=== PATIENT | female | born 1965 | race Caucasian/White ===

== ENCOUNTER 2023-11-13 10:48 | Outpatient (AMB) | payer OTHER, SELFPAY ==
[2023-11-13 10:51] VITALS: BP 134/72; PULSE 75; O2SAT 99; BMI 25.0
--- NOTE | 2023-11-13 10:51 | MHC.OFFVIS ---
Vital Signs 11/13/23 10:51 Height 5 ft Weight 128 lb BMI 25.0 BP 134/72 Blood Pressure Location Lt brachial Position Sitting Pulse 75 Pulse Source Pulse Oximeter Pulse Oximetry (%) 99 Oxygen Delivery Method Room Air Intake Visit Reasons: + NICKO Intake Note: Patient presents today as a new patient with diagnosis of +NIKCO. She states there is inflammation in the back of her right eye. Allergies No Known Allergies Allergy (Verified 11/13/23 10:56) Medication List - Last Reconciled 11/13/23 by Fatuma Alejandra MD amlodipine 5 mg PO DAILY dorzolamide 2% 1 drp ophthalmic (eye) TID omeprazole 20 mg PO DAILY prednisone 10 mg PO DAILY timolol maleate 0.5% drps ophthalmic (eye) HPI Comments Details: This is a 57-year-old female who presents for evaluation of a positive NICKO in the setting of right eye pain uveitis. She states that she was going for a routine eye exam, she stated that her vision was somewhat declining. She denied any eye pain. She saw multiple I specialists. She was found to have uveitis. Most recently she was seen by uveitis specialist at [facility] [place]. She was given different steroid treatments including intravitreal, oral prednisone and topical steroids. She was also found to have increased eye pressure. She states that her eye has been doing better. I pressure is improving. Patient denies having any other symptoms. She denies any swollen joints, denies any back pain, stiffness, skin rashes, fevers, weight loss, hair loss, photosensitivity, she denies any oral or genital ulcers. She denies any history of DVT/PE. 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 Female Reproductive History Menstrual Total pregnancies: 3 Number of Living Children: 2 Ab spontaneous: 1 Review of Systems Const Denies fever(s) and Denies weight loss Eyes Reports change in vision Card Denies dyspnea Resp Denies dyspnea Musc Denies arthralgias, Denies joint swelling and Denies stiffness Skin/Breast Denies alopecia and Denies unusual bruising Physical Exam Vital Signs: Last Vital Signs Pulse 75 11/13/23 10:51 BP 134/72 11/13/23 10:51 Pulse Ox 99 11/13/23 10:51 Oxygen Delivery Method Room Air 11/13/23 10:51 BMI result Body Mass Index 25.0 Const General: cooperative, healthy appearing and comfortable Nutritional Appearance: average body habitus Orientation/consciousness: patient oriented x3 Limitations: no limitations HEENT Head: Yes normocephalic and Yes atraumatic Mouth: oropharynx normal Resp Effort & Inspection: normal respiratory effort and able to speak in complete sentences Auscultation: clear to auscultation bilaterally Cardio Rate: regular rate Rhythm: regular rhythm GI Palpation (GI): Soft to palpation Skin General skin exam: no rashes or lesions noted Neuro General: patient oriented x3 Extrem Other: No active synovitis Negative straight leg raise test bilaterally Negative Fabere test bilaterally Normal nailfold capillaroscopy Results Reviewed Results Reviewed: Labs 05/2023? NICKO 1-12 0 speckled? RF/HLA B27 negative CBC unremarkable? Sed rate 25? CRP normal Edvin level normal HIV 4th generation screen negative? QuantiFERON RPR and FTA negative? Toxoplasma IgG/IgM negative Assessment & Plan Assessment & Plan (1) NICKO positive: Code(s): R76.8 - Other specified abnormal immunological findings in serum Category: Medical Plan: This is a 57-year-old female who presents for evaluation of high titer positive NICKO in the setting of right eye panuveitis. By history and physical exam there are no specific symptoms that are suggestive of an underlying systemic autoimmune rheumatic disease however given right eye panuveitis and high titer positive NICKO I will order comprehensive serology to screen for underlying autoimmune rheumatic disease Follow-up in 4-6 weeks Plan I spent 47 minutes reviewing patient's chart, evaluating patient, ordering diagnostic workup, counseling patient and documenting in the chart Orders: Orders NICKO Reflex Titer and Pattern Today M32.9 - Systemic lupus erythematosus, unspecified Complement C3 Today M32.9 - Systemic lupus erythematosus, unspecified C Reactive Protein Today M32.9 - Systemic lupus erythematosus, unspecified DNA Double Stranded-Crithidia Today M32.9 - Systemic lupus erythematosus, unspecified Complete Blood Count Auto Diff Today M32.9 - Systemic lupus erythematosus, unspecified Comprehensive Met. Panel Today M32.9 - Systemic lupus erythematosus, unspecified Hepatitis A,B,C Profile Today H44.111 - Panuveitis, right eye, Z11.59 - Encounter for screening for other viral diseases Beta-2 Glycoprotein Antibody Today D68.61 - Antiphospholipid syndrome Cardiolipin Antibodies Today D68.61 - Antiphospholipid syndrome Lupus Anticoagulant Panel Today D68.61 - Antiphospholipid syndrome HLA B51 Behcet's Disease Today M35.2 - Behcet's disease Anti Extractable Nuclear Ag Today M32.9 - Systemic lupus erythematosus, unspecified Anti DNA DS Antibody Today M32.9 - Systemic lupus erythematosus, unspecified Complement C4 Today M32.9 - Systemic lupus erythematosus, unspecified Erythrocyte Sedimentation Rate Today M32.9 - Systemic lupus erythematosus, unspecified Protein Creatinine Ratio, Ur Today M32.9 - Systemic lupus erythematosus, unspecified Sjogren's Antibodies Today M32.9 - Systemic lupus erythematosus, unspecified UA w Microscopic Today M32.9 - Systemic lupus erythematosus, unspecified ANCA Vasculitides Today I77.6 - Arteritis, unspecified Cyclic Citrullinated Peptide Today M25.50 - Pain in unspecified joint, R76.8 - Other specified abnormal immunological findings in serum Coding Level of Care Code New Pt Level 4 (15163) Diagnoses NICKO positive R76.8
== END 2023-11-13 11:33 | disposition home or self-care (01) ==
PROVIDERS: PCP Internal Medicine; Referring Provider Internal Medicine; Visit Provider Student in an Organized Health Care Education/Training Program
DX: R76.8 Other specified abnormal immunological findings in serum (principal)
CPT/HCPCS: 99204

== ENCOUNTER 2023-11-13 10:48 | Outpatient (REF) | payer OTHER, SELFPAY ==
[2023-11-13 12:39] LABS: MANUAL DIFF FLAG NO
[2023-11-13 13:09] LABS: Basophils Absolute Auto 0.1 X10*3/uL (0.0-0.2); Basophils Percent Auto 0.7 % (0-2); Eosinophils Absolute Auto 0.1 X10*3/uL (0.0-0.4); Hemoglobin 14.6 g/dl (12.0-16.0); Imm Gran Abs Auto 0.05 X10*3/uL (0.00-0.03); Imm Gran Pct Auto 0.6 % (0.0-0.4); Lymphocytes Absolute Auto 2.9 X10*3/uL (1.2-4.9); Lymphocytes Percent Auto 32.5 % (20-40); Mean Corpuscular Hemoglobin 29.4 pg (27.0-33.0); Mean Corpuscular Volume 86.7 fL (80.0-98.0); Mean Platelet Volume 10.1 fL (9.4-12.3); Monocytes Absolute Auto 0.8 X10*3/uL (0.1-1.2); Monocytes Percent Auto 8.5 % (2-11); Neutrophils Absolute Auto 5.1 x10*3/uL (2.0-8.3); Neutrophils Percent Auto 56.7 % (45-73); Platelet Count 396 X10*3/uL (160-400); Red Blood Count 4.96 X10*6/uL (4.20-5.50); Red Cell Distribution Width 12.9 % (11.0-16.0); White Blood Count 9.1 X10*3/uL (4.8-10.8)
[2023-11-13 13:26] LABS: Appearance Urine Clear; Color Urine Yellow; Glucose Urine UA Negative (Negative); Leukocyte Esterase Urine Trace (Negative); Nitrite Urine Negative (Negative); UMIC TRIGGER UA YES; Urine Blood Negative (Negative); Urine Ketones Negative (Negative); Urine Protein Negative (Neg-Trace)
[2023-11-13 13:29] LABS: Bacteria Urine None Seen (None Seen); Hyaline Casts Urine 0-2 /LPF (0-2); RBC Urine 0-2 /HPF (0-2); Squamous Epithelial Cell Urine 0-2 /HPF (0-2); WBC Urine 0-5 /HPF (0-5)
[2023-11-13 14:02] LABS: Alanine Aminotransferase 22 U/L (0-31); Albumin Level 4.2 g/dL (3.5-5.0); Alkaline Phosphatase 75 U/L (39-117); Anion Gap 13 (12-20); Aspartate Amino Transferase 17 U/L (5-31); Bilirubin Total 0.4 mg/dL (0.0-1.0); Blood Urea Nitrogen 11 mg/dL (9-16); Calcium 10.1 mg/dL (8.4-10.2); Carbon Dioxide 27 mmol/L (22-29); Chloride 106 mmol/L (96-108); Estimated Glomerular Filt Rate > 60; Glucose Random 91 mg/dL (60-115); Potassium 3.3 mmol/L (3.3-5.1); Sodium 143 mmol/L (135-145); Total Protein 7.3 g/dL (6.5-8.0)
[2023-11-13 14:05] LABS: Erythrocyte Sedimentation Rate 7 MM/HR (0-20)
[2023-11-13 14:18] LABS: Creatinine Urine 79.38 mg/dL; Protein/Creatinine Ratio, Ur 0.13 (<0.2); Total Protein Urine Random 10 mg/dL (<12)
[2023-11-14 04:45] LABS: HBS Num1 0.53 mIU/mL (0-7.99); HBc Num1 0.11 S/CO (0.00-0.79); HBsAGNum1 0.44 S/CO (0.00-0.99); Hepatitis B Core Antibody Nonreactive (Nonreactive); Hepatitis B Surface Antigen Negative (Negative); ~HepC Num1 0.07 S/CO (0.00-0.79); ~Hepatitis A Antibody IgM Nonreactive (Nonreactive); ~Hepatitis B Surface Antibody NONREACTIVE (Nonreactive); ~Hepatitis C Antibody Nonreactive (Nonreactive)
[2023-11-14 14:28] LABS: Complement C3 148 mg/dL (83-193)
[2023-11-14 19:59] LABS: Anti DNA DS Antibody <1 IU/mL; Antibody to SS-A Antigen >8.0 POS AI (<1.0 NEG); Antibody to SS-B Antigen <1.0 NEG AI (<1.0 NEG); Myeloperoxidase Antibody <1.0 AI; Proteinase 3 PR3 Antibodies <1.0 AI; SM/Ribonucleoprotein Ab <1.0 NEG AI (<1.0 NEG); Smith Protein <1.0 NEG AI (<1.0 NEG)
[2023-11-16 12:34] LABS: Anti Nuclear Antibody Pattern Nuclear, Speckled; Anti Nuclear Antibody Screen POSITIVE (NEGATIVE)
[2023-11-16 16:48] LABS: Cardiolipin IgG Ab <2.0 GPL-U/mL; Cardiolipin IgM Ab <2.0 MPL-U/mL; Cyclic Citrullinated Peptide <16 UNITS
[2023-11-17 06:34] LABS: DNAds, Crithidia Antibody Positive (Negative)
[2023-11-17 07:04] LABS: DNAds, Crithidia Antibody 1:10 titer (<1:10)
[2023-11-17 22:33] LABS: PTT (LAC) Screen 26 sec (<=40)
[2023-11-23 20:09] LABS: HLA B51 Comments See Comments; HLA B51 Method PCR SSOP
[2023-11-23 22:28] LABS: Beta-2 Glycoprotein IgA <2.0 U/mL (<20.0); Beta-2 Glycoprotein IgG <2.0 U/mL (<20.0); Beta-2 Glycoprotein IgM <2.0 U/mL (<20.0)
== END 2023-11-13 10:49 | disposition home or self-care (01) ==
LOC: HO.LAB 10:48
PROVIDERS: PCP Internal Medicine; Referring Provider Internal Medicine; Visit Provider Student in an Organized Health Care Education/Training Program
DX: M32.9 Systemic lupus erythematosus, unspecified (principal); Z11.59 Encounter for screening for other viral diseases; H44.111 Panuveitis, right eye; D68.61 Antiphospholipid syndrome; I77.6 Arteritis, unspecified; M25.50 Pain in unspecified joint; R76.8 Other specified abnormal immunological findings in serum; M35.2 Behcet's disease
CPT/HCPCS: 36415; 80053; 81001; 81374; 82570; 84156; 85025; 85597; 85598; 85613; 85652; 85730; 86021; 86038; 86039; 86140; 86146; 86147; 86160; 86200; 86225; 86235; 86255; 86704; 86706; 86709; 86803; 87340; 99202

== ENCOUNTER 2024-01-10 08:04 | Outpatient (AMB) | payer OTHER, SELFPAY ==
--- NOTE | 2024-01-10 08:07 | MHC.OFFVIS ---
Vital Signs 01/10/24 08:12 Height 5 ft Weight 132 lb 15.02 oz BMI 26.0 BP 112/74 Blood Pressure Location Rt brachial Position Sitting Pulse 79 Pulse Source Pulse Oximeter Pulse Oximetry (%) 98 Oxygen Delivery Method Room Air Intake Visit Reasons: NICKO/CM Intake Note: Patient presents for NICKO. Allergies No Known Allergies Allergy (Verified 01/10/24 08:11) Medication List - Last Reconciled 01/10/24 by Fatuma Alejandra MD amlodipine 5 mg PO DAILY dorzolamide 2% 1 drp ophthalmic (eye) TID omeprazole 20 mg PO DAILY prednisone 10 mg PO DAILY timolol maleate 0.5% drps ophthalmic (eye) HPI Comments Details: Patient returns for follow-up after completion of her diagnostic workup. Remains on prednisone 10 mg daily. Initial history: This is a 57-year-old female who presents for evaluation of a positive NICKO in the setting of right eye panuveitis. She states that she was going for a routine eye exam, she stated that her vision was somewhat declining. She denied any eye pain. She saw multiple I specialists. She was found to have uveitis. Most recently she was seen by uveitis specialist at [facility] [place]. She was given different steroid treatments including intravitreal, oral prednisone and topical steroids. She was also found to have increased eye pressure. She states that her eye has been doing better. eye pressure is improving. Patient denies having any other symptoms. She denies any swollen joints, denies any back pain, stiffness, skin rashes, fevers, weight loss, hair loss, photosensitivity, she denies any oral or genital ulcers. She denies any history of DVT/PE. 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 Female Reproductive History Menstrual Total pregnancies: 3 Number of Living Children: 2 Ab spontaneous: 1 Review of Systems Const Denies fever(s) and Denies weight loss Eyes Reports change in vision Card Denies dyspnea Resp Denies dyspnea Musc Denies arthralgias, Denies joint swelling and Denies stiffness Skin/Breast Denies alopecia and Denies unusual bruising Physical Exam Vital Signs: Last Vital Signs Pulse 79 01/10/24 08:12 BP 112/74 01/10/24 08:12 Pulse Ox 98 01/10/24 08:12 Oxygen Delivery Method Room Air 01/10/24 08:12 BMI result Body Mass Index 26.0 Const General: cooperative, healthy appearing and comfortable Nutritional Appearance: average body habitus Orientation/consciousness: patient oriented x3 Limitations: no limitations HEENT Head: Yes normocephalic and Yes atraumatic Mouth: oropharynx normal Resp Effort & Inspection: normal respiratory effort and able to speak in complete sentences Skin General skin exam: no rashes or lesions noted Neuro General: patient oriented x3 Extrem Other: No active synovitis Negative straight leg raise test bilaterally Negative Fabere test bilaterally Normal nailfold capillaroscopy Assessment & Plan Assessment & Plan (1) NICKO positive: Code(s): R76.8 - Other specified abnormal immunological findings in serum Category: Medical Plan: This is a 57-year-old female who presents for evaluation of high titer positive NICKO in the setting of right eye panuveitis. Subsequent labs showed positive anti SSA antibody in high titers. Labs otherwise unremarkable with normal C3/C4 inflammatory markers, no proteinuria, no cytopenias. I think given positive anti Ro antibody as well as boss uveitis this may be an initial manifestation of SLE. Systemic therapy may be beneficial in this situation. Discussed risks and benefits of hydroxychloroquine. Patient agreed to proceed. Start hydroxychloroquine 300 mg daily Discussed with patient that hydroxychloroquine generally takes about 3 months to kick in. Consider starting to taper prednisone after 3 months of starting hydroxychloroquine Follow-up in 3 months (2) Long-term use of hydroxychloroquine: Code(s): Z79.899 - Other retirement (current) drug therapy Category: Medical Plan: Discussed risk of retinopathy associated with hydroxychloroquine. Follow-up regularly with locomotive firer Plan I spent 27 minutes reviewing patient's chart, evaluating patient, ordering diagnostic workup, counseling patient and documenting in the chart Orders: Orders Anti DNA DS Antibody 3 Months M32.9 - Systemic lupus erythematosus, unspecified Complement C3 3 Months M32.9 - Systemic lupus erythematosus, unspecified Erythrocyte Sedimentation Rate 3 Months M32.9 - Systemic lupus erythematosus, unspecified Complement C4 3 Months M32.9 - Systemic lupus erythematosus, unspecified C Reactive Protein 3 Months M32.9 - Systemic lupus erythematosus, unspecified Protein Creatinine Ratio, Ur 3 Months M32.9 - Systemic lupus erythematosus, unspecified UA w Microscopic 3 Months M32.9 - Systemic lupus erythematosus, unspecified Complete Blood Count Auto Diff 3 Months M32.9 - Systemic lupus erythematosus, unspecified Comprehensive Met. Panel 3 Months M32.9 - Systemic lupus erythematosus, unspecified Medications: New hydroxychloroquine 300 mg (1.5 x 200 mg) PO DAILY 135 tabs 1RF Coding Level of Care Code Est Pt Level 4 (56036) Complex EM visit Add On G2211 Diagnoses NICKO positive R76.8 Long-term use of hydroxychloroquine Z79.899
[2024-01-10 08:12] VITALS: BP 112/74; PULSE 79; O2SAT 98; BMI 26.0
== END 2024-01-10 08:29 | disposition home or self-care (01) ==
LOC: HO.RHE 08:04
PROVIDERS: PCP Internal Medicine; Visit Provider Student in an Organized Health Care Education/Training Program
DX: R76.8 Other specified abnormal immunological findings in serum (principal); Z79.899 Other long term (current) drug therapy
CPT/HCPCS: 99214; G2211

== ENCOUNTER → 2024-01-10 08:04 | Outpatient (BNVA) | payer OTHER, SELFPAY | PROVIDERS: PCP Internal Medicine; Visit Provider Student in an Organized Health Care Education/Training Program | DX: R76.8 Other specified abnormal immunological findings in serum (principal); M32.9 Systemic lupus erythematosus, unspecified; Z79.899 Other long term (current) drug therapy | CPT/HCPCS: 99212 ==

== ENCOUNTER 2024-02-29 10:36 | Outpatient (REF) | payer OTHER, SELFPAY ==
[2024-02-29 11:02] LABS: MANUAL DIFF FLAG NO
[2024-02-29 11:24] LABS: Basophils Absolute Auto 0.1 X10*3/uL (0.0-0.2); Basophils Percent Auto 1.1 % (0-2); Eosinophils Absolute Auto 0.1 X10*3/uL (0.0-0.4); Eosinophils Percent Auto 1.6 % (0-4); Hematocrit 37.6 % (37.0-47.0); Hemoglobin 12.6 g/dl (12.0-16.0); Imm Gran Abs Auto 0.02 X10*3/uL (0.00-0.03); Imm Gran Pct Auto 0.3 % (0.0-0.4); Lymphocytes Absolute Auto 2.6 X10*3/uL (1.2-4.9); Lymphocytes Percent Auto 35.1 % (20-40); Mean Corpuscular HGB Conc 33.5 g/dl (31.0-35.0); Mean Corpuscular Hemoglobin 28.8 pg (27.0-33.0); Mean Corpuscular Volume 85.8 fL (80.0-98.0); Monocytes Absolute Auto 0.8 X10*3/uL (0.1-1.2); Monocytes Percent Auto 10.5 % (2-11); Neutrophils Absolute Auto 3.8 x10*3/uL (2.0-8.3); Neutrophils Percent Auto 51.4 % (45-73); Platelet Count 384 X10*3/uL (160-400); Red Blood Count 4.38 X10*6/uL (4.20-5.50); Red Cell Distribution Width 13.2 % (11.0-16.0); White Blood Count 7.4 X10*3/uL (4.8-10.8)
[2024-02-29 12:05] LABS: Albumin Level 4.2 g/dL (3.5-5.0); Anion Gap 10 (12-20); Aspartate Amino Transferase 30 U/L (5-31); Bilirubin Total 0.4 mg/dL (0.0-1.0); Blood Urea Nitrogen 13 mg/dL (9-16); C Reactive Protein < 0.10 mg/dL (< or = 0.50); Calcium 9.6 mg/dL (8.4-10.2); Carbon Dioxide 28 mmol/L (22-29); Chloride 106 mmol/L (96-108); Estimated Glomerular Filt Rate > 60; Glucose Random 100 mg/dL (60-115); Potassium 3.9 mmol/L (3.3-5.1); Sodium 140 mmol/L (135-145); Total Protein 7.1 g/dL (6.5-8.0)
[2024-02-29 12:17] LABS: Erythrocyte Sedimentation Rate 9 MM/HR (0-20)
[2024-02-29 12:30] LABS: Alkaline Phosphatase 74 U/L (39-117)
[2024-02-29 12:42] LABS: Alanine Aminotransferase 33 U/L (0-31)
== END 2024-02-29 10:37 | disposition home or self-care (01) ==
LOC: HO.LAB 10:36
PROVIDERS: PCP Internal Medicine; Visit Provider Student in an Organized Health Care Education/Training Program
DX: Z79.631 Long term (current) use of antimetabolite agent (principal)
CPT/HCPCS: 36415; 80053; 85025; 85652; 86140

== ENCOUNTER 2024-04-08 11:02 | Outpatient (REF) | payer OTHER, SELFPAY ==
[2024-04-08 11:18] LABS: MANUAL DIFF FLAG NO
[2024-04-08 11:59] LABS: Basophils Percent Auto 0.4 % (0-2); Eosinophils Absolute Auto 0.2 X10*3/uL (0.0-0.4); Eosinophils Percent Auto 2.5 % (0-4); Hematocrit 39.9 % (37.0-47.0); Hemoglobin 13.6 g/dl (12.0-16.0); Imm Gran Abs Auto 0.05 X10*3/uL (0.00-0.03); Imm Gran Pct Auto 0.6 % (0.0-0.4); Lymphocytes Absolute Auto 2.1 X10*3/uL (1.2-4.9); Mean Corpuscular HGB Conc 34.1 g/dl (31.0-35.0); Mean Corpuscular Hemoglobin 29.2 pg (27.0-33.0); Mean Corpuscular Volume 85.6 fL (80.0-98.0); Mean Platelet Volume 10.2 fL (9.4-12.3); Monocytes Absolute Auto 0.7 X10*3/uL (0.1-1.2); Monocytes Percent Auto 8.6 % (2-11); Neutrophils Absolute Auto 5.2 x10*3/uL (2.0-8.3); Neutrophils Percent Auto 62.9 % (45-73); Platelet Count 276 X10*3/uL (160-400); Red Blood Count 4.66 X10*6/uL (4.20-5.50); Red Cell Distribution Width 13.7 % (11.0-16.0); White Blood Count 8.3 X10*3/uL (4.8-10.8)
--- OUTSIDE RECORDS SUMMARY | 2024-04-08 12:13 | XMS_ITS | Encounter Summary ---
Author Organization [employer] [facility] Address [address] [place] [id number] Care Team Providers Care Fly Maker Name Role Phone Unavailable Primary Care Provider Unavailabl e Encounter Details Date Type Department Care Team (Latest Contact Info) Description 10/08/2020 Abstract [facility] CONVERSIONS Dental, Provider, DDS Social History Tobacco Use Types Packs/Day Years Used Date Smoking Tobacco: Never Assessed Comments Unknown Sex and Gender Information Value Date Recorded Sex Assigned at Female 01/03/2022 10:37 AM EDT Legal Sex Female 10:37 AM EDT Gender Identity Female 01/03/2022 10:37 AM EDT Sexual Orientation Choose not to disclose 2021 10:37 AM EDT documented as of this encounter Plan of Treatment Upcoming Encounters Date Type Department Care Team ( Contact Info) Description 07/30/2024 8:00 AM EDT Office Visit [facility] [address] [place] [address] Odalis Mcrae [address] [place], [place] [phone] documented as of this encounter Visit Diagnoses Not on filedocumented in this encounter
--- OUTSIDE RECORDS SUMMARY | 2024-04-08 12:13 | XMS_ITS | Clinical Summary ---
Author Organization [facility] Address [address] [place] [address] [address] [place] [address] Care Team Providers Care Partner Manager Name Role Phone Unavailable Primary Care Provider Unavailabl e Allergies No known active allergies Medications amLODIPine (Norvasc) 5 MG tablet Take 1 tablet by mouth at bed time. Active omeprazole (PriLOSEC) [address] capsule Take 20 mg by mouth in the morning. 3 Active dorzolamide (Trusopt) 2 % ophthalmic solution Administer 1 drop into affected eye(s) 2 times daily. 4 Active predniSONE (Deltasone) 10 MG tablet Take 10 mg by mouth Once per day. 4 Active folic acid (Folvite) 1 MG tablet Take 1 tablet by mouth in the morning. 4 Active methotrexate 2.5 MG tablet TAKE 6 TABS AT ONCE (ONCE A WEEK) 4 Active Encounters Date Type Department Care Team Description 01/25/2024 8:00 AM EST Office Visit [facility] [address] [place] [address] [phone] Odalis Mcrae from Last 3 Months Social History Tobacco Use Types Packs/Day Years Used Date Smoking Tobacco: Never Smokeless Tobacco: Never Tobacco Cessation:Counseling Given: Not Answered Comments Unknown Sex and Gender Information Value Date Recorded Sex Assigned at Female 01/03/2022 10:37 AM EDT Legal Sex Female 10:37 AM EDT Gender Identity Female 01/03/2022 10:37 AM EDT Sexual Orientation Choose not to disclose 2021 10:37 AM EDT Last Filed Vital Signs Vital Sign Reading Time Taken Comments Blood Pressure 136/76 01/25/2024 8:12 AM EST Pulse 82 01/25/2024 8:12 AM EST Temperature - - Respiratory Rate - - Oxygen Saturation - - Inhaled Oxygen Concentration - - Weight - - Height - - Body Mass Index - - Plan of Treatment Upcoming Encounters Date Type Department Care Team (Micaela cardoso Contact Info) Description 07/30/2024 8:00 AM EDT Office Visit [facility] [address] [place], [place] [phone] Odalis Mcrae [address] [place], [place] [phone] Health Maintenance Due Date Last Done Comments CT Colonography 1963 Colonoscopy 1963 Colorectal Cancer Screening 1963 Dental X-Ray: Full Mouth 1963 Depression Screening 1963 FIT DNA/Cologuard 1963 FIT 1963 FOBT 1963 HIV Screening 1963 SDOH Screening 1963 Sigmoidoscopy 1963 Alcohol/Substance Use Screening 1975 Hepatitis C Screening 12/29/1981 Pap Smear 12/29/1984 Cervical Cancer Screening 12/29/1993 HPV/Cotest 12/29/1993 Mammogram 2003 Pneumococcal Vaccine: 50+ Years (2 of 2 - PPSV23) 05/18/2021 05/18/2020 COVID-19 Vaccine ( season) 2023 12/22/2021, 06/13/2021, 02/07/2021, Additional history exists Dental Oral Exam 07/25/2024 01/25/2024, 08/02/2023 Dental Prophylaxis 07/25/2024 01/25/2024, 0 08/02/2023, 12/20/2022, Additional history exists Dental X-Ray: Bitewings 08/02/2024 08/02/2023, 06/13 Tobacco Screening 01/24/2025 01/25/2024 DTaP/Tdap/Td Vaccines (2 - Td or Tdap) 05/18/2030 05/18/2020 RSV Patients and Patients Aged 60 years or older (1 - 1-dose 75+ series) 12/29/2038 Zoster Vaccines Completed 08/21/2020, 05/18/2020 Influenza Vaccine Completed 12/11/2023, , 12/22/2021, Additional history exists HIB Vaccines Aged Out No longer eligi ble based on patient's age to complete this topic HPV Vaccines Aged Out No longer eligi ble based on patient's age to complete this topic Hepatitis A Vaccines Aged Out No long er eligible based on patient's age to complete this topic Hepatitis B Vaccines Aged Out No long er eligible based on patient's age to complete this topic IPV Vaccines Aged Out No longer eligi ble based on patient's age to complete this topic Meningococcal Vaccine Aged Out No lin ada eligible based on patient's age to complete this topic RSV under 20 months Aged Out No longe r eligible based on patient's age to complete this topic Rotavirus Vaccines Aged Out No longer eligible based on patient's age to complete this topic Procedures Procedure Name Priority Date/Time Associated Diagnosis Comments PROPHYLAXIS - ADULT Routine 01/25/2024 8 :00 AM EST PERIODIC ORAL EVALUATION - ESTABLISHED PATIENT Routine 01/25/2024 8:00 AM EST BITEWINGS - 4 RADIOGRAPHIC IMAGES Routine 08/02/2023 8:00 AM EDT from Last 3 Months or Most Recently Relevant to Health Maintenance Insurance [facility]
--- OUTSIDE RECORDS SUMMARY | 2024-04-08 12:13 | XMS_ITS | Continuity of Care Document ---
Author Organization [facility] Address [address] [facility] [address] [place] [phone] Phone Care Team Providers Care Machine Sizer Name Role Phone Harry Roach Unavailable Unavailable Allergies, Adverse Reactions, Alerts Substance Reaction Status Criticality No Known Allergies Active No Inform ation Medications Medication Instructions Dosage Effective Dates (start - stop) Status Comments AMLODIPINE BESYLATE (unknown strength) Not Available - Active Procedures Procedure Date Sngl/mx Inj Scleros-veins; Carrasco 19 Offic Cons New/estab Mod 40 Mi 19 Duplex Scan-extrem Veins; Comp 19 PT Did Not Receive Services Advance Directives Directive Yes / No Effective Date File Name No Information Encounters Encounter Description Practice Location Reason(s) For Visit Diagnoses Date Provider Providers Copied on Encounter [facility], [address], [id number], [place] tel:[phone] Spider Veins - ([place]angiectas ia) Doc Mcdonald. [address], [address], [place], [address], [place]. [phone] Referring Provider: Harry Roger, [address], [place], [address]. tel:[phone] Offic Cons New/estab Mod 40 Mi [facility], [address] [place] [address], [id number], tel:[phone] [facility] Body mass index (BMI) 25.0-25.9, adultSpider Veins - (Telangiectas ia) Doc Mcdonald. [address] [place] [address], [address], [place], [address], . tel:[phone] Referring Provider: Harry Roger, [address] [place] [address] [address], [place], [address]. tel:[phone] [facility], [address] [place] [address], [id number], tel:[phone] [facility] Chronic venous htn w oth comp of bilateral low extrm Doc Mcdonald. [address] [place] [address], [address], [place], [address], . [phone] Referring Provider: Harry Roger, [address] [place] [address] [address], [place], [place], [facility]. tel:[phone] [facility], [address] [place] [address], [id number], tel:[phone] [facility] No Information Doc Mcdonald. [address] [place] [address], [address], [place], [address], . tel:[phone] Referring Provider: Harry Roger, [address] [place] [address] [address], [place], [place], [facility]. tel:[phone] Family History Family Member Type Diagnosis Age At Onset No Information Payers Payer name Insurance type Covered green party ID Authoriza tion(s) No Information Social History Type Description Quantity Date Captured Comments Sex Female Smoking Status No Information Chief Complaint And Reason For Visit No Information Reason For Referral Reason For Referral No Information Plan Of Treatment Date Type Action Status Goal Diet education completed Referral Ordered: Duplex Scan-extrem Veins; Comp Bilateral leg ordered History Of Present Illness Encounter Date Complaint History Of Prese nt Illness No Information Functional Status Date Functional Assessmen t No Information Instructions Date Instruction Additional Infor mation Patient education booklet given Related to Spider Veins - (Telangiectasia) Giving Encouragement to Exercise Related to Body mass index (BMI) 25.0-25.9, adult Diet education Related to Body mass index (BMI) 25.0-25.9, adult Assessments Type Assessment Date No Information Patient Care Teams Name Effective Dates (start - stop) Status Members No Information
[2024-04-08 12:35] LABS: Erythrocyte Sedimentation Rate 9 MM/HR (0-20)
[2024-04-08 12:52] LABS: Alanine Aminotransferase 29 U/L (0-31); Alkaline Phosphatase 85 U/L (39-117); Anion Gap 10 (12-20); Aspartate Amino Transferase 25 U/L (5-31); Bilirubin Total 0.4 mg/dL (0.0-1.0); Blood Urea Nitrogen 14 mg/dL (9-16); C Reactive Protein 0.22 mg/dL (< or = 0.50); Calcium 9.2 mg/dL (8.4-10.2); Carbon Dioxide 27 mmol/L (22-29); Chloride 107 mmol/L (96-108); Estimated Glomerular Filt Rate > 60; Glucose Random 113 mg/dL (60-115); Potassium 4.2 mmol/L (3.3-5.1); Sodium 140 mmol/L (135-145); Total Protein 7.2 g/dL (6.5-8.0)
== END 2024-04-08 11:03 | disposition home or self-care (01) ==
LOC: HO.LAB 11:02
PROVIDERS: PCP Internal Medicine; Visit Provider Student in an Organized Health Care Education/Training Program
DX: Z79.631 Long term (current) use of antimetabolite agent (principal)
CPT/HCPCS: 36415; 80053; 85025; 85652; 86140

== ENCOUNTER → 2024-04-11 09:24 | Outpatient (BNVA) | payer OTHER, SELFPAY | PROVIDERS: PCP Internal Medicine; Visit Provider Student in an Organized Health Care Education/Training Program | DX: M32.9 Systemic lupus erythematosus, unspecified (principal); I10 Essential (primary) hypertension; Z79.631 Long term (current) use of antimetabolite agent; Z79.899 Other long term (current) drug therapy | CPT/HCPCS: 99212 ==

== ENCOUNTER → 2024-04-11 09:24 | Outpatient (AMB) | payer OTHER, SELFPAY ==
--- NOTE | 2024-04-11 09:25 | A.OFFVIS_ITS ---
Vital Signs 04/11/24 09:32 Height 5 ft Weight 131 lb 9.855 oz BMI 25.7 BP 124/74 Blood Pressure Location Rt brachial Position Sitting Pulse 84 Pulse Source Pulse Oximeter Pulse Oximetry (%) 98 Oxygen Delivery Method Room Air Intake Visit Reasons: SLE/uveitis Intake Note: Patient presents for SLE/uveitis. 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 Alejandra. At that time patient was initially started on hydroxychloroquine it was thought that patient may have signs of early lupus. However based on the discussion with Ophthalmology methotrexate or CellCept was recommended and so hydroxychloroquine was stopped and methotrexate was started at 6 tablets a week to be titrated to 8 tablets weekly. Since that visit patient had an ALT of [address] Alejandra calling the patient and telling her to hold the methotrexate until follow up. In addition to that patient had sudden onset of a erythematous, pruritic and painful rash involving her upper chest her flank, under arms and back. She received topical and oral steroids from her primary care physician which improved the rash. Pictures were seen on the patient's phone. Today patient reports that she is overall well denies any prolonged morning stiffness, oral or nasal ulcers, return of eye redness or inflammation. 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 At that time thought to have lupus based on +++NICKO, +++SSA, +dsDNA Initially started on Plaquenil but and this was discontinued (unsure of the reason) Started on methotrexate which better covered uveitis (had mild elevation in ALT and it was held) Current Rheumatology Medication(s): [facility] Medical History (Updated 04/11/24 @ 11:42 by Allison Piedra MD) SLE (systemic lupus erythematosus) Panuveitis, right eye Pre-diabetes Hypertension Surgical History H/O: Family History Brother Glaucoma Social History Patient Tobacco Use Status: Never used Tobacco Current occupational status: employed 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 Review of Systems Const Details: Review of Systems Constitutional: Denies fever, chills, weight loss ENT: Denies vision changes, eye pain or eye redness, dental caries, dry mouth GI: Denies nausea, vomiting, diarrhea, abdominal pain, change in BM Pulm: Denies SOB, WEATHERS, hemoptysis, wheezing Cards: Denies chest pain, palpitations Skin: Denies Raynaud's, rash, nail changes, photosensitivity, APPRAISER IRRIGATION TAX: Denies headaches, weakness, paresthesias, recurrent falls MSK: as per HPI All other systems reviewed and are unremarkable except noted above Physical Exam Vital Signs: Last Vital Signs Pulse 84 04/11/24 09:32 BP 124/74 04/11/24 09:32 Pulse Ox 98 04/11/24 09:32 Oxygen Delivery Method Room Air 04/11/24 09:32 BMI result Body Mass Index 25.7 Vital signs reviewed Physical Examination CONSTITUITIONAL Patient alert and cooperative. Well appearing and in no apparent painful distress HEENT Conjunctiva and sclera clear. ?Pupils equal round and reactive to light. ?No lymphadenopathy. ? CHEST/RESPIRATORY SYSTEM Normal respiratory effort and able to speak in complete sentences. ?Clear to auscultation bilaterally. ?No crackles, rales, rhonchi, wheezes heard. CARDIAC SYSTEM Regular rate and rhythm. ?S1 and S2 heard no murmurs. ?Radial pulses intact bilaterally MSK Hands: ?Good microwave radio technician strength bilaterally. No deformities noted. ?No synovitis noted to the MCPs, PIPs or DIPs. ?No tenderness to palpation of these joints. Wrists: ?Full range of motion at the wrists without pain. ?No tenderness to palpation or synovitis noted to the wrists. Elbows: Full range of motion without pain. No tenderness, weakness, swelling, increased warmth or erythema. Shoulders: Full range of motion without pain. No tenderness, weakness, swelling, increased warmth or erythema. Hips: Full range of motion without pain. Hip bursa: No tenderness to palpation Knees: ?Full range of motion. ?No tenderness, swelling, increased warmth or erythema.?No effusion or crepitations Ankles: Full range of motion. ?No tenderness, swelling, increased warmth or erythema.? Feet: ?Negative squeeze test. ?No tenderness to palpation or swelling of the MTPs. Tender points:?No tenderness to palpation of the bilateral trapezius, supraspinatus, greater trochanters, anterior costochondral junctions, bilateral gluteal areas, bilateral suboccipital muscle insertions SKIN No active rash seen but hyperpigmented areas noted as remnants of the rash. Results Reviewed Results Reviewed: Laboratory Tests 11/13/23 04/08/24 12:25 11:17 WBC 8.3 RBC 4.66 Hgb 13.6 Hct 39.9 Plt Count 276 D ESR 9 Sodium 140 Potassium 4.2 Chloride 107 Carbon Dioxide 27 BUN 14 Creatinine 0.65 Calcium 9.2 Total Bilirubin 0.4 AST 25 ALT 29 Alkaline Phosphatase 85 C-Reactive Protein 0.22 Total Protein 7.2 Albumin 4.0 Cycl Citrul Peptide IgG <16 NICKO Screen POSITIVE A NICKO Titer 1:320 H NICKO Pattern Nuclear, Speckled A SS-A/Ro Antibody >8.0 POS A Anti-ds DNA Titer (Crith) 1:10 H Anti-ds DNA (Crithidia) Positive A Complement C3 148 Complement C4 18 Assessment & Plan Assessment & Plan (1) SLE (systemic lupus erythematosus): Comment: Ddx 11/2023. +++NICKO, +++SSA, +dsDNA, nl C3/C4 Plaquenil 11/2023 - 12/2023 (unsure of reason stopped), restarted 04/2024 Methotrexate - 02/2024 (mild elevation in ALT 33), restarted 04/2024 Code(s): M32.9 - Systemic lupus erythematosus, unspecified Category: Medical Qualifiers: Systemic lupus erythematosus type: unspecified Systemic lupus erythematosus organ involvement: unspecified Qualified Code(s): M32.9 - Systemic lupus erythematosus, unspecified Plan: #SLE Patient is a 58-year-old female with boss uveitis in the setting of positive NICKO and now presenting with a rash which is confirmatory of lupus. 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 Limit alcohol and avoid Bactrim ? Monitoring: ?CBC, BMP, LFTs every 3-4 months and hepatitis serologies as needed (3) Long-term use of hydroxychloroquine: Code(s): Z79.899 - Other longwall foreman (current) drug therapy Category: Medical Plan: #Long-term Use of Hydroxychloroquine Discussed with patient the risks and benefits of hydroxychloroquine in managing the rheumatic condition Benefits include: - Reduced pain, reduce mortality, maintenance of remission and reduction of flares Risks include: - GI upset, skin hyperpigmentation, retinal toxicity (especially after more than 5 years of use), myopathy Advised yearly ophthalmology visits Last ophthalmology visit: 02/2024 Plan I spent 40 minutes reviewing the record and labs, taking a history, examining the patient, discussing the treatment plan and documenting in the medical record Orders: Orders Complement C3 3 Months M32.9 - Systemic lupus erythematosus, unspecified, Z79.631 - termite control service representative (current) use of antimetabolite agent Complement C4 3 Months M32.9 - Systemic lupus erythematosus, unspecified, Z79.631 - half-way (current) use of antimetabolite agent Erythrocyte Sedimentation Rate 3 Months M32.9 - Systemic lupus erythematosus, unspecified, Z79.631 - termite control service representative (current) use of antimetabolite agent Protein Creatinine Ratio, Ur 3 Months M32.9 - Systemic lupus erythematosus, unspecified, Z79.631 - half-way (current) use of antimetabolite agent UA w Microscopic 3 Months M32.9 - Systemic lupus erythematosus, unspecified, Z79.631 - half-way (current) use of antimetabolite agent Complete Blood Count Auto Diff 3 Months M32.9 - Systemic lupus erythematosus, unspecified, Z79.631 - half-way (current) use of antimetabolite agent Comprehensive Met. Panel 3 Months M32.9 - Systemic lupus erythematosus, unspecified, Z79.631 - half-way (current) use of antimetabolite agent C Reactive Protein 3 Months M32.9 - Systemic lupus erythematosus, unspecified, Z79.631 - termite control service representative (current) use of antimetabolite agent Anti DNA DS Antibody 3 Months M32.9 - Systemic lupus erythematosus, unspecified, Z79.631 - half-way (current) use of antimetabolite agent Medications: New methotrexate sodium 15 mg (6 x 2.5 mg) PO QWEEK 90 days 78 tabs 1RF M32.9 - Systemic lupus erythematosus, unspecified, Z79.631 - half-way (current) use of antimetabolite agent folic acid 1 mg PO DAILY 90 tabs 1RF M32.9 - Systemic lupus erythematosus, unspecified, Z79.631 - half-way (current) use of antimetabolite agent hydroxychloroquine (Plaquenil) Take one tablet daily Mon-Fri; two tablets Sat-Sun 400 mg (2 x 200 mg) PO DAILY 180 tabs 1RF M32.9 - Systemic lupus erythematosus, unspecified Coding Level of Care Code Est Pt Level 5 (71026) Complex EM visit Add On G2211 Diagnoses Systemic lupus erythematosus, unspecified SLE type, unspecified organ involvement status M32.9 Systemic lupus erythematosus type: unspecified Systemic lupus erythematosus organ involvement: unspecified 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
--- OUTSIDE RECORDS SUMMARY | 2024-04-11 09:31 | XMS_ITS | Encounter Summary ---
Author Organization [facility] Address [address] [place] [address] [address] [address] Care Team Providers Care Wood Block Artist Name Role Phone Unavailable Primary Care Provider Unavailabl e Encounter Details Date Type Department Care Team (Latest Contact Info) Description 10/08/2020 Abstract [facility] CONVERSIONS Dental, Provider, DDS Social History Tobacco [...] Description 07/30/2024 8:00 AM EDT Office Visit [facility] [address] [place] [address] Odalis Mcrae [address] [place], [place] [phone] documented as of this encounter Visit Diagnoses Not on filedocumented in this encounter
--- OUTSIDE RECORDS SUMMARY | 2024-04-11 09:32 | XMS_ITS | Clinical Summary ---
Author Organization [facility] Address [address] [place] [address] [address] [place] [address] Care Team Providers Care Professor Of Sociology Name Role Phone Unavailable Primary Care Provider [...] Description 01/25/2024 8:00 AM EST Office Visit [facility] [address] [place] [phone] Odalis Mcrae from Last 3 Months Social [...] Description 07/30/2024 8:00 AM EDT Office Visit [facility] [address] [place], [place] [id number] Odalis Mcrae [address] [place], [place] [phone] Health Maintenance Due Date Last Done Comments [...] Most Recently Relevant to Health Maintenance Insurance [facility]
--- OUTSIDE RECORDS SUMMARY | 2024-04-11 09:32 | XMS_ITS | Continuity of Care Document ---
Author Organization [facility] Address [address] [facility] [address] [place] [phone] Phone Care Team Providers Care Assembler And Tester Electronics Name Role Phone Harry Roach Unavailable Unavailable [...] Copied on Encounter [facility], [address], [id number], tel:[phone] - [facility] Spider Veins - ([place]) Doc Mcdonald. [address], [address], [place], [address], [place]. [phone] Referring Provider: Harry Roger, [address], [place], [address]. tel:[phone] Offic Cons New/estab Mod 40 Mi [facility], [address] [place] [address], [id number], tel:[phone] [facility] Body mass index (BMI) 25.0-25.9, adultSpider Veins - ([place]) Doc Mcdonald. [address] [place] [address], [address], [place], [address], . tel:[phone] Referring Provider: Harry Roger, [address] [place] [address] [address], [place], [address]. tel:[phone] [facility], [address] [place] [address], [id number], tel:[phone] [facility] Chronic venous htn w oth comp of bilateral low extrm Doc Mcdonald. [address] [place] [address], [address], [place], [address], . [phone] Referring Provider: Harry Roger, [address] [place] [address] [address], [place], [place], [facility]. tel:[phone] [facility], [address] [place] [address], [id number], tel:[phone] [facility] No Information Doc Mcdonald. [address] [place] [address], [address], [place], [address], . tel:[phone] Referring Provider: Harry Roger, [address] [place] [address] [address], [place], [place], [facility]. tel:[phone] Family History Family Member Type Diagnosis Age At Onset No Information Payers Payer name Insurance type Covered democrat ID Authoriza tion(s) No Information Social History [...]
== END | disposition home or self-care (01) ==
PROVIDERS: PCP Internal Medicine; Visit Provider Student in an Organized Health Care Education/Training Program
CPT/HCPCS: 99215; G2211

== ENCOUNTER 2024-07-04 08:18 | Outpatient (REF) | payer OTHER, SELFPAY ==
--- OUTSIDE RECORDS SUMMARY | 2024-07-04 08:33 | XMS_ITS | Clinical Summary ---
Author Organization [facility] Address [address] [place] [address] [address] [place] [address] Care Team Providers Care Aircraft Stress Analyst Name Role Phone Unavailable Primary Care Provider [...] AT ONCE (ONCE A WEEK) 4 Active Social History Tobacco Use Types Packs/Day Years [...] Upcoming Encounters Date Type Department Care Team ([facility] st Contact Info) Description 07/30/2024 8:00 AM EDT Office Visit [facility] [address] [place] [phone] Odalis Mcrae [address] [place], [place] [phone] Health Maintenance Due Date Last Done Comments [...] Most Recently Relevant to Health Maintenance Insurance [facility]
--- OUTSIDE RECORDS SUMMARY | 2024-07-04 08:33 | XMS_ITS | Encounter Summary ---
Author Organization [employer] [facility] Address [address] [place] [address] [address] [address] Care Team Providers Care Pulverizer Operator Name Role Phone Unavailable Primary Care Provider Unavailabl e Encounter Details Date Type Department Care Team (Latest Contact Info) Description 10/08/[address] [facility] CONVERSIONS Dental, Provider, DDS Social History [...] Description 07/30/2024 8:00 AM EDT Office Visit [facility] [address] [place] [address] Odalis Mcrae [address] [place], [place] [phone] documented as of this encounter Visit Diagnoses Not on filedocumented in this encounter
[2024-07-04 09:21] LABS: MANUAL DIFF FLAG NO
[2024-07-04 09:55] LABS: Basophils Absolute Auto 0.1 X10*3/uL (0.0-0.2); Basophils Percent Auto 1.6 % (0-2); Eosinophils Absolute Auto 0.2 X10*3/uL (0.0-0.4); Eosinophils Percent Auto 4.5 % (0-4); Hematocrit 40.3 % (37.0-47.0); Hemoglobin 13.3 g/dl (12.0-16.0); Imm Gran Abs Auto 0.01 X10*3/uL (0.00-0.03); Imm Gran Pct Auto 0.2 % (0.0-0.4); Lymphocytes Absolute Auto 1.2 X10*3/uL (1.2-4.9); Lymphocytes Percent Auto 27.6 % (20-40); Mean Corpuscular Hemoglobin 29.1 pg (27.0-33.0); Mean Corpuscular Volume 88.2 fL (80.0-98.0); Mean Platelet Volume 9.8 fL (9.4-12.3); Monocytes Absolute Auto 0.6 X10*3/uL (0.1-1.2); Neutrophils Absolute Auto 2.4 x10*3/uL (2.0-8.3); Neutrophils Percent Auto 53.1 % (45-73); Platelet Count 443 X10*3/uL (160-400); Red Blood Count 4.57 X10*6/uL (4.20-5.50); Red Cell Distribution Width 12.7 % (11.0-16.0); White Blood Count 4.5 X10*3/uL (4.8-10.8)
[2024-07-04 10:08] LABS: Appearance Urine Clear; Color Urine Yellow; Glucose Urine UA Negative (Negative); Leukocyte Esterase Urine Negative (Negative); Nitrite Urine Negative (Negative); Specific Gravity - Urine 1.015 (1.005-1.025); Urine Blood Negative (Negative); Urine Ketones Negative (Negative); Urine Protein Negative (Neg-Trace)
[2024-07-04 10:14] LABS: Bacteria Urine None Seen (None Seen); Hyaline Casts Urine 0-2 /LPF (0-2); RBC Urine 0-2 /HPF (0-2); Squamous Epithelial Cell Urine 0-2 /HPF (0-2); WBC Urine 0-5 /HPF (0-5)
[2024-07-04 10:31] LABS: Erythrocyte Sedimentation Rate 16 MM/HR (0-20)
[2024-07-04 11:00] LABS: Alanine Aminotransferase 41 U/L (0-31); Albumin Level 4.2 g/dL (3.5-5.0); Alkaline Phosphatase 70 U/L (39-117); Anion Gap 9 (12-20); Aspartate Amino Transferase 35 U/L (5-31); Bilirubin Total 0.4 mg/dL (0.0-1.0); Blood Urea Nitrogen 10 mg/dL (9-16); C Reactive Protein 0.12 mg/dL (< or = 0.50); Calcium 9.6 mg/dL (8.4-10.2); Carbon Dioxide 28 mmol/L (22-29); Chloride 107 mmol/L (96-108); Cholesterol 192 mg/dL (<200); Estimated Glomerular Filt Rate > 60; Glucose Fasting 96 mg/dL (60-99); Glucose Random 96 mg/dL (60-115); HDL Cholesterol 45 mg/dL (>40); LDL Cholesterol Calculated 124 mg/dL (<100); Potassium 4.4 mmol/L (3.3-5.1); Sodium 140 mmol/L (135-145); Total Protein 7.1 g/dL (6.5-8.0); Triglycerides 119 mg/dL (<150)
[2024-07-04 11:13] LABS: Creatinine Urine 92.16 mg/dL; Protein/Creatinine Ratio, Ur 0.12 (<0.2); Total Protein Urine Random 11 mg/dL (<12)
[2024-07-05 23:04] LABS: Anti DNA DS Antibody <1 IU/mL
[2024-07-08 11:03] LABS: Complement C3 160 mg/dL (83-193)
== END 2024-07-04 08:19 | disposition home or self-care (01) ==
LOC: HO.LAB 08:18
PROVIDERS: Absent Provider Internal Medicine; PCP Internal Medicine; Visit Provider Student in an Organized Health Care Education/Training Program
DX: Z00.00 Encounter for general adult medical examination without abnormal findings (principal); R53.83 Other fatigue; E78.5 Hyperlipidemia, unspecified; M32.9 Systemic lupus erythematosus, unspecified; Z79.631 Long term (current) use of antimetabolite agent
CPT/HCPCS: 36415; 80053; 80061; 81001; 82570; 84156; 85025; 85652; 86140; 86160; 86225

== ENCOUNTER 2024-07-15 09:59 | Outpatient (AMB) | payer OTHER, SELFPAY ==
--- NOTE | 2024-07-15 10:20 | A.OFFVIS_ITS ---
Vital Signs 07/15/24 10:24 Height 5 ft Weight 127 lb 6.835 oz BMI 24.9 BP 122/80 Blood Pressure Location Lt brachial Position Sitting Respiration 16 Pulse 82 Pulse Source Pulse Oximeter Pulse Oximetry (%) 98 Oxygen Delivery Method Room Air Intake Visit Reasons: SLE/uveitis Intake Note: Patient presents for SLE follow up. Allergies No Known Allergies Allergy (Verified 07/15/24 10:23) Medication List - Last Reconciled 07/15/24 by Allison Piedra MD amlodipine 5 mg PO DAILY dorzolamide 2% 1 drp ophthalmic (eye) TID folic acid 1 mg PO DAILY hydroxychloroquine (Plaquenil) 400 mg (2 x 200 mg) PO DAILY methotrexate sodium 15 mg (6 x 2.5 mg) PO QWEEK 90 days omeprazole 20 mg PO DAILY timolol maleate 0.5% drps ophthalmic (eye) HPI Comments Details: Patient is a 58-year-old female with hypertension who is here today for follow up of Lupus c/b boss uveitis Interval History: Patient was last seen 04/11/24 with me. At that time she was following up for boss uveitis in the setting of a positive NICKO. She had recently stopped all her medication, Plaquenil for an unknown reason and methotrexate due to mild elevation in her ALT. She also complained of a rash which was seen on the patient's phone which confirmed the diagnosis of lupus. 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 At that time thought to have lupus based on +++NICKO, +++SSA, +dsDNA Initially started on Plaquenil but and this was discontinued (unsure of the reason) Started on methotrexate which better covered uveitis (had mild elevation in ALT and it was held) Current Rheumatology Medication(s): Methotrexate 15mg PO weekly Folic acid 1mg daily Plaquenil 400mg daily x 5 days then 200mg daily x 2 days [facility] Medical History (Updated 04/11/24 @ 11:42 by Allison Piedra MD) SLE (systemic lupus erythematosus) Panuveitis, right eye Pre-diabetes Hypertension Surgical History H/O: Family History Brother Glaucoma Social History Patient Tobacco Use Status: Never used Tobacco Current occupational status: employed 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 Review of Systems Const Details: Review of Systems Constitutional: Denies fever, chills, weight loss ENT: Denies vision changes, eye pain or eye redness, dental caries, dry mouth GI: Denies nausea, vomiting, diarrhea, abdominal pain, change in BM Pulm: Denies SOB, WEATHERS, hemoptysis, wheezing Cards: Denies chest pain, palpitations Skin: Denies Raynaud's, nail changes, photosensitivity, CRUSHER DRY GROUND MICA: Denies headaches, weakness, paresthesias, recurrent falls MSK: as per HPI All other systems reviewed and are unremarkable except noted above Physical Exam Vital signs reviewed Physical Examination CONSTITUITIONAL Patient alert and cooperative. Well appearing and in no apparent painful distress HEENT Conjunctiva and sclera clear. ?Pupils equal round and reactive to light. ?No lymphadenopathy. ? CHEST/RESPIRATORY SYSTEM Normal respiratory effort and able to speak in complete sentences. ?Clear to auscultation bilaterally. ?No crackles, rales, rhonchi, wheezes heard. CARDIAC SYSTEM Regular rate and rhythm. ?S1 and S2 heard no murmurs. ?Radial pulses intact bilaterally MSK Hands: ?Able to make a fist. No synovitis noted to the MCPs, PIPs or DIPs. ?No tenderness to palpation of these joints. No deformities noted. ? Wrists: ?Full range of motion at the wrists without pain. ?No tenderness to palpation or synovitis noted to the wrists. Elbows: Full range of motion without pain. No tenderness, weakness, swelling, increased warmth or erythema. Shoulders: Full range of active range of motion without pain. No tenderness, weakness, swelling, increased warmth or erythema. Hips: Full range of motion without pain. Hip bursa: No tenderness to palpation Knees: ?Full range of motion. ?No tenderness, swelling, increased warmth or erythema.?crepitations Ankles: Full range of motion. ?No tenderness, swelling, increased warmth or erythema.? Feet: ?Negative squeeze test. ?No tenderness to palpation or swelling of the MTPs. Tender points:?No tenderness to palpation of the bilateral trapezius, supraspinatus, greater trochanters, anterior costochondral junctions, bilateral gluteal areas, bilateral suboccipital muscle insertions SKIN Rough erythematous rash in her clevage area Results Reviewed Results Reviewed: Laboratory Tests 07/04/24 09:19 WBC 4.5 L RBC 4.57 Hgb 13.3 Hct 40.3 Plt Count 443 H D ESR 16 Sodium 140 Potassium 4.4 Chloride 107 Carbon Dioxide 28 BUN 10 Creatinine 0.72 AST 35 H ALT 41 H C-Reactive Protein 0.12 Immunology labs 07/04/24 09:19 Double Strand DNA Ab <1 Complement C3 160 Complement C4 20 11/13/23 04/08/24 12:25 11:17 Cycl Citrul Peptide IgG <16 NICKO Screen POSITIVE A NICKO Titer 1:320 H NICKO Pattern Nuclear, Speckled A SS-A/Ro Antibody >8.0 POS A Anti-ds DNA Titer (Crith) 1:10 H Anti-ds DNA (Crithidia) Positive A Complement C3 148 Complement C4 18 Urine tests 07/04/24 09:20 Urine Color Yellow Urine Protein Negative Urine Blood Negative Urine RBC 0-2 Protein/Creatinin Ratio 0.12 Assessment & Plan Assessment & Plan (1) SLE (systemic lupus erythematosus): Comment: Ddx 11/2023. +++NICKO, +++SSA, +dsDNA, nl C3/C4 Plaquenil 11/2023 - 12/2023 (unsure of reason stopped), restarted 04/2024 Methotrexate - 02/2024 (mild elevation in ALT 33), restarted 04/2024 Code(s): M32.9 - Systemic lupus erythematosus, unspecified Category: Medical Qualifiers: Systemic lupus erythematosus type: unspecified Systemic lupus erythematosus organ involvement: unspecified Qualified Code(s): M32.9 - Systemic lupus erythematosus, unspecified Plan: #SLE Patient is a 58-year-old female with boss uveitis in the setting of lupus. Now with elevated transaminases. We will stop methotrexate. Continue the Plaquenil. No evidence of synovitis on examination. Lupus labs are within normal limits. We will need to contact her order desk caller to discuss further treatment options. Plan - Plaquenil 200mg M-F and 400mg Sat-Sun - Contact Ophthalmology to discuss treatment - Topical betamethasone for rash bid - RTC 3 months - Labs before next visit: CBC, CMP, ESR, CRP, C3, C4, dsDNA, UA, UPC (2) nursing home methotrexate user: Code(s): Z79.631 - nursing home (current) use of antimetabolite agent Category: Medical Plan: #Long-term Current Use of Methotrexate Discussed with patient the benefits and risks of methotrexate for managing their rheumatic condition Benefits include reduced pain, reduced mortality, maintenance of remission and reduction of flares Risks include oral ulcers, photosensitivity, hepatotoxicity, hematologic toxicity, pneumonitis, flu-like symptoms (especially day after administration), nodulosis, lymphomas ? Limit alcohol and avoid Bactrim ? Monitoring: ?CBC, BMP, LFTs every 3-4 months and hepatitis serologies as needed (3) Long-term use of hydroxychloroquine: Code(s): Z79.899 - Other joint terminal attack controller (current) drug therapy Category: Medical Plan: #Long-term Use of Hydroxychloroquine Discussed with patient the risks and benefits of hydroxychloroquine in managing the rheumatic condition Benefits include: - Reduced pain, reduce mortality, maintenance of remission and reduction of flares Risks include: - GI upset, skin hyperpigmentation, retinal toxicity (especially after more than 5 years of use), myopathy Advised yearly ophthalmology visits Last ophthalmology visit: 02/2024 Plan I spent 40 minutes reviewing the record and labs, taking a history, examining the patient, contacting opthalmology discussing the treatment plan and documenting in the medical record Medications: New betamethasone dipropionate 0.05% 1 appl topical BID PRN 45 grams 1RF skin irritation M32.9 - Systemic lupus erythematosus, unspecified Refilled hydroxychloroquine (Plaquenil) Take one tablet daily Mon-Fri; two tablets Sat-Sun 400 mg (2 x 200 mg) PO DAILY 180 tabs 1RF M32.9 - Systemic lupus erythematosus, unspecified Discontinued methotrexate sodium Discontinued Reason: Doctor's Order 15 mg (6 x 2.5 mg) PO QWEEK 90 days 78 tabs 1RF M32.9 - Systemic lupus erythematosus, unspecified, Z79.631 - nursing home (current) use of antimetabolite agent folic acid Discontinued Reason: Doctor's Order 1 mg PO DAILY 90 tabs 1RF M32.9 - Systemic lupus erythematosus, unspecified, Z79.631 - nursing home (current) use of antimetabolite agent Coding Level of Care Code Est Pt Level 5 (62455) Complex EM visit Add On G2211 Diagnoses Systemic lupus erythematosus, unspecified SLE type, unspecified organ involvement status M32.9 Systemic lupus erythematosus type: unspecified Systemic lupus erythematosus organ involvement: unspecified oil heaterman methotrexate user Z79.631 Long-term use of hydroxychloroquine Z79.899
--- OUTSIDE RECORDS SUMMARY | 2024-07-15 10:21 | XMS_ITS | Encounter Summary ---
Author Organization [email or web address] Address [address] [place] [address] 7 [place] [address] Care Team Providers Care Judicial Clerk Name Role Phone Unavailable Primary Care Provider Unavailabl e Encounter Details Date Type Department Care Team (Latest Contact Info) Description 10/08/2020 Abstract [facility] CONVERSIONS Dental, Provider, DDS Social History Tobacco [...] Encounters Date Type Department Care Team ( st Contact Info) Description 07/30/2024 8:00 AM EDT Office Visit [facility] [address] [place] [address] Odalis Mcrae [address] [place], [place] [phone] documented as of this encounter Visit Diagnoses Not on filedocumented in this encounter
--- OUTSIDE RECORDS SUMMARY | 2024-07-15 10:21 | XMS_ITS | Continuity of Care Document ---
Author Organization [facility] Address [address] [facility] [address] [place] [phone] Phone Care Team Providers Care Manager Internship Name Role Phone Harry Roach Unavailable Unavailable [...] Copied on Encounter [facility], [address], [id number], tel:[phone] - [facility] Veins - ([place]) Doc Mcdonald. [address], [address], [place], [address], [place]. [phone] Referring Provider: Harry Roger, [address], [place], [address]. tel:[phone] Offic Cons New/estab Mod 40 Mi [facility], [address] [place] [address], [id number], tel:[phone] [facility] Body mass index (BMI) 25.0-25.9, adultSpider Veins - ([place]) Doc Mcdonald. [address] [place] [address], [address], [place], [address], . tel:[phone] Referring Provider: Harry Roger, [address] [place] [address] [address], [place], [address]. tel:[phone] [facility], [address] [place] [address], [id number], tel:[phone] [facility] Chronic venous htn w oth comp of bilateral low extrm Doc Mcdonald. [address] [place] [address], [address], [place], [address], . [phone] Referring Provider: Harry Roger, [address] [place] [address] [address], [place], [place], [facility]. tel:[phone] [facility], [address] [place] [address], [id number], tel:[phone] [facility] No Information Doc Mcdonald. [address] [place] [address], [address], [place], [address], . tel:[phone] Referring Provider: Harry Roger, [address] [place] [address] [address], [place], [place], [facility]. tel:[phone] Family History Family Member Type Diagnosis Age At Onset No Information Payers Payer name Insurance type Covered alliance party ID Authoriza tion(s) No Information Social [...]
--- OUTSIDE RECORDS SUMMARY | 2024-07-15 10:21 | XMS_ITS | Clinical Summary ---
Author Organization [facility] Address [address] [facility] [address] [place] [address] Care Team Providers Care Master [place] Name Role Phone Unavailable Primary Care Provider [...] Upcoming Encounters Date Type Department Care Team (Late st Contact Info) Description 07/30/2024 8:00 AM EDT Office Visit [facility] [address] [place] [phone] Odalis Mcrae [address] [place], [place] [phone] Health Maintenance Due Date Last Done Comments [...] Most Recently Relevant to Health Maintenance Insurance [facility]
[2024-07-15 10:24] VITALS: BP 122/80; PULSE 82; RESP 16; O2SAT 98; BMI 24.9
== END 2024-07-15 10:39 | disposition home or self-care (01) ==
LOC: HO.RHE 09:59
PROVIDERS: PCP Internal Medicine; Visit Provider Student in an Organized Health Care Education/Training Program
DX: M32.9 Systemic lupus erythematosus, unspecified (principal); Z79.631 Long term (current) use of antimetabolite agent; Z79.899 Other long term (current) drug therapy
CPT/HCPCS: 99215; G2211

== ENCOUNTER → 2024-07-15 09:59 | Outpatient (BNVA) | payer OTHER, SELFPAY | PROVIDERS: PCP Internal Medicine; Visit Provider Student in an Organized Health Care Education/Training Program | DX: M32.9 Systemic lupus erythematosus, unspecified (principal); I10 Essential (primary) hypertension; Z79.631 Long term (current) use of antimetabolite agent; Z79.899 Other long term (current) drug therapy | CPT/HCPCS: 99212 ==

== ENCOUNTER 2024-10-24 14:10 | Outpatient (REF) | payer MEDICAID, SELFPAY ==
[2024-10-24 17:41] LABS: Appearance Urine Clear; Glucose Urine UA Negative (Negative); PH 6.0 (5.0-9.0); Specific Gravity - Urine <= 1.005 (1.005-1.025); UMIC TRIGGER UACC YES
[2024-10-24 17:48] LABS: MANUAL DIFF FLAG NO
[2024-10-24 17:57] LABS: Hematocrit 37.1 % (37.0-47.0); Hemoglobin 12.6 g/dl (12.0-16.0); Imm Gran Abs Auto 0.01 X10*3/uL (0.00-0.03); Imm Gran Pct Auto 0.2 % (0.0-0.4); Lymphocytes Absolute Auto 1.9 X10*3/uL (1.2-4.9); Mean Corpuscular HGB Conc 34.0 g/dl (31.0-35.0); Mean Corpuscular Hemoglobin 27.9 pg (27.0-33.0); Mean Corpuscular Volume 82.3 fL (80.0-98.0); NRBC Abs Auto 0.000 X10*3/uL (0.0-0.012); NRBC Pct Auto 0.0 /100WBC (0.0-0.2); Platelet Count 413 X10*3/uL (160-400); Red Blood Count 4.51 X10*6/uL (4.20-5.50); White Blood Count 5.2 X10*3/uL (4.8-10.8)
[2024-10-24 18:15] LABS: Alanine Aminotransferase 19 U/L (0-31); Albumin Level 4.6 g/dL (3.5-5.0); Alkaline Phosphatase 82 U/L (39-117); Anion Gap 13 (12-20); Aspartate Amino Transferase 26 U/L (5-31); Blood Urea Nitrogen 10 mg/dL (9-16); Calcium 9.8 mg/dL (8.4-10.2); Carbon Dioxide 25 mmol/L (22-29); Chloride 105 mmol/L (96-108); Estimated Glomerular Filt Rate > 60; Potassium 3.8 mmol/L (3.3-5.1); Sodium 139 mmol/L (135-145); Total Protein 7.3 g/dL (6.5-8.0)
[2024-10-24 18:47] LABS: Total Protein Urine Random < 7 mg/dL (<12)
== END 2024-10-24 14:11 | disposition home or self-care (01) ==
LOC: HO.HKASLDS 14:10
PROVIDERS: PCP Internal Medicine; Visit Provider Student in an Organized Health Care Education/Training Program
DX: M32.9 Systemic lupus erythematosus, unspecified (principal); G62.9 Polyneuropathy, unspecified; Z79.631 Long term (current) use of antimetabolite agent; Z79.624 Long term (current) use of inhibitors of nucleotide synthesis
CPT/HCPCS: 36415; 80053; 81001; 82570; 84156; 85025; 85652; 86140; 86160; 86225; 99212

== ENCOUNTER 2024-10-24 14:10 | Outpatient (AMB) | payer MEDICAID, SELFPAY ==
--- OUTSIDE RECORDS SUMMARY | 2024-10-24 14:18 | XMS_ITS | Clinical Summary ---
Author Organization [facility] Address [address] [place] [phone] Phone Care Team Providers Care Legal Instruments Examiner Name Role Phone Trevor Linnnaya Primary Care Provider [phone] Allergies No known active allergies Medications omeprazole (PRILOSEC) 20 MG capsule Take by mouth daily. Active amLODIPine (NORVASC) 5 MG tablet Take 1 tablet by mouth daily. 06/07/19 23 Active mycophenolate mofetil (CELLCEPT) 500 mg tablet TAKE 1 PILL TWICE A DAY FOR 2 WEEKS THEN 2 PILLS TWICE A DAY 07/16/19 25 Active betamethasone dipropionate 0.05 % cream APPLY TOPICALLY 2 TIMES A DAY NEEDED FOR SKIN IRRITATION 07/16/19 25 Active dorzolamide (TRUSOPT) 2 % ophthalmic solution Place 1 drop into each eye 2 (two) times a day. 1 drop, Each eye, BID 10 mL 12 10/15/19 25 Active timolol (TIMOPTIC) 0.5 % ophthalmic solution Place 1 drop into each eye 2 (two) times a day. 10 mL 3 10/15/19 25 Active folic acid (FOLVITE) 1 MG tablet Take 1 tablet by mouth every morning. 08/01/19 24 025 Discontinued ketorolac (ACULAR) 0.5 % ophthalmic solution 08/03/19 24 025 Discontinued brinzolamide (AZOPT) 1 % ophthalmic suspension Place 1 drop into each eye 2 (two) times a day. 10 mL 12 10/23/19 24 025 Discontinued dorzolamide (TRUSOPT) 2 % ophthalmic solution Place 1 drop into each eye 2 (two) times a day. 1 drop, Each eye, BID 10 mL 12 12/19/19 24 025 Discontinued(R eorder) methotrexate 2.5 MG Oral tablet TAKE 6 TABS AT ONCE (ONCE A WEEK) 08/24/19 24 025 Discontinued timolol (TIMOPTIC) 0.5 % ophthalmic solution Place 1 drop into each eye 2 (two) times a day. 10 mL 3 04/09/19 25 025 Discontinued(R eorder) predniSONE (DELTASONE) 5 MG tablet Take 1 tablet (5 mg total) by mouth daily. For 30 days then STOP 30 tablet 05/01/19 025 Discontinued hydroxychloroqu ine (PLAQUENIL) 200 mg tablet TAKE ONE TABLET BY MOUTH DAILY ON MON-MON AND TWO TABLETS ON SAT-SUN 07/16/19 025 Discontinued Active Problems No known active problems Encounters Date Type Department Care Team Description 10/14/2024 10:30 AM EDT Office Visit [facility] in [address] [address] Lisette Matias MD Low-tension glaucoma of both eyes, moderate stage (Primary Dx) 09/17/2024 10:15 AM EDT Office Visit [facility] in [address] [address] Elis Hand MD Retinal edema of right eye (Primary Dx); Panuveitis of right eye from Last 3 Months Family History Medical History Relation Comments Glaucoma Brother Diabetes Mother Relation Status Comments Brother Mother Social History Tobacco Use Types Packs/Day Years Used Date Smoking Tobacco: Never Passive Smoke Exposure: Never Smokeless Tobacco: Never Tobacco Cessation:Counseling Given: Not Answered Alcohol Use Standard Drinks/Week Comments Yes 0 (1 standard drink = 0.6 oz pur e alcohol) social Education Answer Date Recorded Are you interested in more education? Not on kayli e 06/20/2023 Are you concerned about learning? Not on file 06/20/2023 No 06/20/2023 No 06/20/2023 Digital Access Answer Date Recorded No 06/20/2023 No 06/20/2023 Reliable internet access at home? Not on file 06/20/2023 Device with a working camera? Not on file Comments No Sex and Gender Information Value Date Recorded Sex Assigned at Female 10/05/2023 5:26 AM EDT Legal Sex Female 9:35 AM EDT Gender Identity Female 10/05/2023 5:26 AM EDT Sexual Orientation Straight 10/05/2023 5: 26 AM EDT Last Filed Vital Signs Vital Sign Reading Time Taken Comments Blood Pressure 138/88 01/29/2024 8:58 AM EST Pulse - - Temperature - - Respiratory Rate - - Oxygen Saturation - - Inhaled Oxygen Concentration - - Weight 60.3 kg (133 lb) 01/29/2024 8:58 AM EST Height 152.4 cm (5') 01/29/2024 8:58 AM EST Body Mass Index 25.97 01/29/2024 8:58 AM EST Plan of Treatment Upcoming Encounters Date Type Department Care Team (Late st Contact Info) Description 01/13/2025 12:45 PM EST Office Visit [facility] in [address] [address] Lisette Matias MD [address] [place] [address] [email or web address] 03/18/2025 10:15 AM EST Office Visit [facility] in [address] [address] Elis Hand MD [address] [place] [address], [address] [address] [email or web address] 03/18/2025 10:30 AM EST Procedure visit [facility] in [address] [address] Health Maintenance Due Date Last Done Comments LIPID PANEL 1965 DEPRESSION SCREENING 1975 HIV ONE-TIME SCREENING (18-65 YEARS) 12/29/1981 MAMMOGRAM 2003 COLOGUARD 12/29/2008 COLONOSCOPY 12/29/2008 COLORECTAL CANCER SCREENING 12/29/2008 FIT TEST 12/29/2008 FOBT 12/29/2008 SIGMOIDOSCOPY 12/29/2008 VIRTUAL COLONOSCOPY 12/29/2008 PNEUMOCOCCAL VACCINES (50+ years) (2 of 2 - PPSV23) 07/13/2020 05/18/2020 COVID-19 VACCINE (6 - season) 2023 12/22/2021, 06/13/2021, 02/07/2021, Additional history exists RSV VACCINE (1 - Risk 60-74 years 1-dose series) 2023 SCREENING FOR DIABETES 10/04/2026 10/05/2023 PAP SMEAR 01/28/2027 01/29/2024 Adult Td,Tdap Booster 05/18/2030 05/18/2020 ZOSTER VACCINES Completed 08/21/2020, 05/18/2020 HEPATITIS C SCREENING Completed 10/05/2023, 024 SMOKING STATUS SCREENING (Once After 26 Yrs) Completed 10/14/2024 HEPATITIS A VACCINES Aged Out No long er eligible based on patient's age to complete this topic HIB VACCINES Aged Out No longer eligi ble based on patient's age to complete this topic MENINGOCOCCAL VACCINES (ACWY) Aged Out No longer eligible based on patient's age to complete this topic MENINGOCOCCAL VACCINES (B) Aged Out N o longer eligible based on patient's age to complete this topic Medical Devices Not on file Procedures Procedure Name Priority Date/Time Associated Diagnosis Comments OCT, OPTIC NERVE - OU - BOTH EYES Routine 10/14/2024 11:10 AM EDT Low-tension glaucoma of both eyes, moderate stage REYES VISUAL FIELD - OU - BOTH EYES Routine 10/14/2024 11:10 AM EDT Low-tension glaucoma of both eyes, moderate stage OCT, RETINA - OU - BOTH EYES Routine 09/17/2024 10:49 AM EDT Retinal edema of right eye Panuveitis of right eye PAP TEST Routine 01/29/2024 12:00 AM EST HEPATITIS C ANTIBODY, QUALITATIVE Routine 10/05/2023 12:13 PM EDT Need for hepatitis C screening test from Last 3 Months or Most Recently Relevant to Health Maintenance Results * OCT, Optic Nerve - OU - Both Eyes - Cirrus; RNFL (10/14/2024 11:10 AM EDT) Other Narrative UNIQUE - 10/14/2024 12:47 PM EDT Right Eye Quality: Good. Retinal nerve fiber layer thickness (um): 69. Change: Baseline. Optic nerve head and nerve fiber layer: Abnormal superior, Abnormal inferior. Left Eye Quality: Good. Retinal nerve fiber layer thickness (um): 78. Change: Baseline. Optic nerve head and nerve fiber layer: Borderline. General Details Testing performed by: XAVI Wiley. Notes GOOD FIXATION & COOPERATION Lisette Matias MD OPHTHALMOLOGY IMAGING Final Resu lt Performing Organization Address [facility] de Phone Number YOSHIY * Reyes Visual Field - OU - Both Eyes (10/14/2024 11:10 AM EDT) Other Narrative Kaleidoscope - 10/14/2024 12:05 PM EDT Right Eye Pattern: 24-2. Strategy: CHARLIE - Faster. Reliability: Good. Change: Baseline. Findings: Inferior nasal step. Left Eye Pattern: 24-2. Strategy: CHARLIE - Faster. Reliability: Good. Change: Baseline. Findings: Superior paracentral defect. General Details Testing performed by: XAVI Wiley. Notes Unable to capture gaze for tracking OU. Pt was cooperative us Lisette Matias MD OPHTHALMOLOGY IMAGING Edited Res ult - Final Performing Organization Address [facility] Co de Phone Number YOSHIY * OCT, RETINA - OU - BOTH EYES - Cirrus; Retina; HD 5-Line Macula CHRISTY, HD Radial Macula CHRISTY (09/17/2024 10:49 AM EDT) Other Narrative Kaleidoscope - 09/17/2024 10:54 AM EDT Right Eye Quality was good. Findings include abnormal foveal contour, epiretinal membrane, retinal pigment epithelium changes . Disease has: been stable. Left Eye Quality was good. Findings include normal foveal contour. Disease has: been stable. General Details Testing performed by: HLL. Notes GOOD FIXATION & COOPERATION us Elis Hand MD OPHTHALMOLOGY IMAGING Final Res ult UNIQUE * Pap Test (01/29/2024 12:00 AM EST) 01/29/2024 01/30/2024 9:4 7 AM EST Narrative SEE NARRATIVE - 02/05/2024 2:55 PM EST [address] [address] Dipping Machine Operator: Noam Buckley MD ACADEMIC AFFAIRS DIRECTOR Cytology Report FINAL DIAGNOSIS A. PAP SMEAR (THIN PREP) CE: SPECIMEN ADEQUACY: Satisfactory for evaluation; transformation zone present. Evaluation limited by scant cellularity. INTERPRETATION: NEGATIVE FOR INTRAEPITHELIAL LESION OR MALIGNANCY. Atrophy. This specimen was analyzed by the automated ThinPrep Imaging System ([employer] [place] and the selected klein were reviewed by a rn corrections. Electronically Signed Out By: DONI Leonardo(ASCP) The Pap test is a screening test primarily for squamous cancers and precursors and has associated false-negative and false-positive results. New technologies such as liquid-based preparations may decrease but will not eliminate all false-negative results. Regular sampling and follow-up of unexplained clinical signs and symptoms are recommended to minimize false negative results. PROCEDURES/ADDENDA HPV Testing (Requested) Ordered Date: 01/30/2024 A. PAP SMEAR (THIN PREP) CE: High-risk HPV Panel w/ extended genotyping NEG HPV 16-NEG HPV 18-NEG HPV 45-NEG HPV 33/58-NEG HPV 31-NEG HPV 56/59/66-NEG HPV 51-NEG HPV 52-NEG HPV 35/39/68-NEG Performed by real-time polymerase chain reaction (PCR) at [facility], [address] [place] [address] using the FDA-approved BD Onclarity9 HPV Assay with extended genotyping. Uses of the assay in scenarios other than those approved by the FDA should be considered off-label use. The accuracy and precision of this test for all other off-label specimen sources has been verified in the Cytopathology Laboratory of the [facility] and has not been cleared or approved by the U.S. Food and Drug Administration. Clinical correlation is advised. The assay assesses the E6/E7 DNA target and utilizes human beta globin as an internal control. Cytology and HPV testing are screening assays and should not be used as the sole means of detecting cancer. False-positives and false-negatives can occur. CLINICAL HISTORY Date of Last Menstrual Period: Not Provided Menstrual History: Post Menopausal Other Clinical Conditions: Screening Pap SPECIMEN SOURCE A: PAP SMEAR (THIN PREP) CE Patient Name: MARGA AJ : 1965 (Age: 58) Sex: F Institution: [facility] Location: [facility] Date of Collection: 01/29/2024 Date of Reported: 02/05/2024 14:55 Results to: Dulce Mcclelland MD us Dulce Mcclelland MD CYTOLOGY ORDERABLES Final Resu lt SEE NARRATIVE * Hepatitis C antibody, qualitative (10/05/2023 12:13 PM EDT) HCV ANTIBODY Negative Negative [facility] Comment:Antibodies to HCV no t detected. Does not exclude the possibility of exposure to HCV. Blood 10/05/2023 12:1 3 PM EDT 10/05/2023 12:17 PM EDT us Elis Hand MD LAB BLOOD ORDERABLES Final Resu lt [facility] [address] [place] [address] from Last 3 Months or Most Recently Relevant to Health Maintenance Insurance [facility] NON NSPG PCP SILVER CLARITY CONNECTORCARE WELLS[employer] NON NSPG PCP SILVER CLARITY CONNECTORCARE WELLSENSE NON NSPG PCP SILVER CLARITY CONNECTORCARE WELLSENSE NON NSPG PCP SILVER CLARITY CONNECTORCARE WELLSENSE NON NSPG PCP SILVER CLARITY CONNECTORCARE WELLSENSE NON NSPG PCP SILVER CLARITY CONNECTORCARE WELLS[employer] NON NSPG PCP SILVER CLARITY CONNECTORCARE [address] C3 ACO Care Teams Legal Instruments Examiner Relationship Specialty Start Date End Date Ameya Murray DO [address] [place] [address], [address] [place] [address] [email or web address] PCP - General Internal Medicine 09/17/24 Additional Source Comments The information contained in this document represents components of the legal health record. It is not the complete legal health record.[facility]
--- OUTSIDE RECORDS SUMMARY | 2024-10-24 14:18 | XMS_ITS | Encounter Summary ---
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 Name Role Phone Unavailable Primary Care Provider Unavailabl e Encounter Details Date Type Department Care Team (Latest Contact Info) Description 10/08/2020 Abstract [facility] CONVERSIONS Dental, Provider, DDS Social History [...] Care Team (Late st Contact Info) Description 11/06/2024 9:00 AM EDT Office Visit [facility] [address] [place] [address] Kevin Jack, HABITAT CONSERVATION PLANNER [address] [place] [address] 02/03/2025 8:00 AM EST Office Visit [facility] [address] [place], [place] [phone] José Luis Mcraeine [address] [place], [place] [phone] documented as of this encounter Visit Diagnoses Not on filedocumented in this encounter
[2024-10-24 14:43] VITALS: BP 120/68; PULSE 66; O2SAT 97; BMI 25.1
--- NOTE | 2024-10-24 14:43 | A.OFFVIS_ITS ---
Vital Signs 10/24/24 14:43 Height 5 ft Weight 128 lb 11.999 oz BMI 25.1 BP 120/68 Blood Pressure Location Lt brachial Position Sitting Pulse 66 Pulse Source Pulse Oximeter Pulse Oximetry (%) 97 Oxygen Delivery Method Room Air Intake Visit Reasons: SLE/uveitis Intake Note: Patient presents for follow up on lupus. Patient states her joints are aching, and she is fatigued. Allergies No Known Allergies Allergy (Verified 10/24/24 14:47) Medication List - Last Reconciled 10/24/24 by Allison Piedra MD amlodipine 5 mg PO DAILY betamethasone dipropionate 0.05% 1 appl topical BID PRN dorzolamide 2% 1 drp ophthalmic (eye) BID mycophenolate mofetil 1,000 mg (2 x 500 mg) PO BID 90 days omeprazole 20 mg PO DAILY timolol maleate 0.5% drps ophthalmic (eye) turmeric mg PO HPI Comments Details: Patient is a 58-year-old female with hypertension who is here today for follow up of Lupus c/b boss uveitis Interval History: Patient was last seen 07/15/24 with me. - On Methotrexate and Plaquenil - Still getting intermittent rashes - Joint pain involving the knees - No prolonged AM stiffness Since then - Had to stop Mtx 2/2 transminitis - Started MMF for boss uveitis - Self discontinued HCQ Today - On MMF - Tolerating this medication but notes some GI upset. 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 At that time thought to have lupus based on +++NICKO, +++SSA, +dsDNA Initially started on Plaquenil but and this was discontinued (unsure of the reason) Started on methotrexate which better covered uveitis (had mild elevation in ALT and it was held) Current Rheumatology Medication(s): MMF 1000mg bid [facility] Medical History (Updated 10/24/24 @ 15:50 by Allison Piedra MD) SLE (systemic lupus erythematosus) Panuveitis, right eye Pre-diabetes Hypertension Surgical History H/O: Family History Brother Glaucoma Social History Patient Tobacco Use Status: Never used Tobacco Current occupational status: employed 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 Review of Systems Const Details: Review of Systems Constitutional: Denies fever, chills, weight loss ENT: Denies vision changes, eye pain or eye redness, dental caries, dry mouth GI: Denies nausea, vomiting, diarrhea, abdominal pain, change in BM Pulm: Denies SOB, WEATHERS, hemoptysis, wheezing Cards: Denies chest pain, palpitations Skin: Denies Raynaud's, rash, nail changes, photosensitivity, 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 Well appearing and in no apparent painful distress HEENT Conjunctiva and sclera clear. No lymphadenopathy. MSK Hands * Right Hand: Able to make a fist. No swelling or tenderness to palpation of these joints. * Left Hand: Able to make a fist. No swelling or tenderness to palpation of these joints. Wrists * Right Wrist: Full ROM. 70 degrees of wrist flexion, 80 degrees of wrist extension. No swelling or TTP * Left Wrist: Full ROM. 70 degrees of wrist flexion, 80 degrees of wrist extension. No swelling or TTP Elbows * Right Elbow: Full ROM. No swelling or TTP. No TTP of the medial and lateral epicondyles * Left Elbow: Full ROM. No swelling or TTP. No TTP of the medial and lateral epicondyles Shoulders * Right shoulder: Full ROM. No swelling noted. No TTP of the AC joint, subacromial bursa or posterior shoulder * Left shoulder: Full ROM. No swelling noted. No TTP of the AC joint, subacromial bursa or posterior shoulder Knees * Right knee: Full ROM. No swelling noted. No TTP of the knee joint lie or pes anserine bursa * Left knee: Full ROM. No swelling noted. No TTP of the knee joint lie or pes anserine bursa. * Crepitations felt bilaterally Ankles * Right ankle: Good ankle dorsiflexion and plantar flexion. No swelling. No TTP of the ankle joint * Left ankle: Good ankle dorsiflexion and plantar flexion. No swelling. No TTP of the ankle joint Feet * Right foot: Negative squeeze test * Left foot: Negative squeeze test Tender points? * No tenderness to palpation of the bilateral trapezius, supraspinatus, anterior costochondral junctions, bilateral suboccipital muscle insertions SKIN No rashes Vital Signs: Last Vital Signs Pulse 66 10/24/24 14:43 BP 120/68 10/24/24 14:43 Pulse Ox 97 10/24/24 14:43 Oxygen Delivery Method Room Air 10/24/24 14:43 BMI result Body Mass Index 25.1 Results Reviewed Results Reviewed: Laboratory Tests 04/08/24 07/04/24 11:17 09:19 WBC 4.5 L RBC 4.57 Hgb 13.3 Hct 40.3 Plt Count 443 H D ESR 16 Sodium 140 Potassium 4.4 Chloride 107 Carbon Dioxide 28 BUN 10 Creatinine 0.72 AST 25 35 H ALT 29 41 H C-Reactive Protein 0.12 Laboratory Tests 11/13/23 12:25 NICKO Screen POSITIVE A NICKO Titer 1:320 H NICKO Pattern Nuclear, Speckled A SS-A/Ro Antibody >8.0 POS A Anti-ds DNA Titer (Crith) 1:10 H Anti-ds DNA (Crithidia) Positive A Laboratory Tests 07/04/24 09:19 Double Strand DNA Ab <1 Complement C3 160 Complement C4 20 Assessment & Plan Assessment & Plan (1) SLE (systemic lupus erythematosus): Comment: Ddx 11/2023. +++NICKO, +++SSA, +dsDNA, nl C3/C4 Plaquenil 11/2023 - 12/2023 (unsure of reason stopped), restarted 04/2024 Methotrexate - 02/2024 (mild elevation in ALT 33), restarted 04/2024. D/c 07/2024 MMF 07/2024 Code(s): M32.9 - Systemic lupus erythematosus, unspecified Category: Medical Qualifiers: Systemic lupus erythematosus type: unspecified Systemic lupus erythematosus organ involvement: unspecified Qualified Code(s): M32.9 - Systemic lupus erythematosus, unspecified Plan: #SLE Patient is a 58-year-old female with boss uveitis in the setting of lupus. Discontinued Mtx due to transaminitis HCQ self discontinued due to s/e Tolerating MMF. Opthal without any recurrent uveitis Plan - MMF 1000mg bid - Topical betamethasone for rash bid prn - Alpha lipoic acid 600mg daily to trial neuropathy - Labs today: Labs before visit: CBC, CMP, ESR, CRP, C3, C4, dsDNA, UA, UPC - RTC 6 months - Labs before next visit: CBC, CMP, ESR, CRP, C3, C4, dsDNA, UA, UPC (2) Encounter for usp use of mycophenolate mofetil: Code(s): Z79.624 - long term care phlebotomist (current) use of inhibitors of nucleotide synthesis Plan: #Long-term Use of Mycophenolate/Mycophenolic Acid Discussed with patient the benefits and risks of mycophenolate/mycophenolic acid for the management of the rheumatic condition Benefits include improved disease control and reduction of mortality Risks include GI upset especially diarrhea, anemia, leukopenia, hepatotoxicity, lymphoproliferative malignancies, PML Mycophenolate and mycophenolic acid are teratogenic and should be avoided in patients who are desiring the Monitoring: CBC, LFTs, BMP Recommended holding medication during and for up to 1 week after resolution of a febrile illness Plan I spent 25 minutes reviewing the record and labs, taking a history, examining the patient, discussing the treatment plan and documenting in the medical record Medications: New alpha lipoic acid 600 mg PO DAILY 90 tabs 1RF G62.9 - Polyneuropathy, unspecified Coding Level of Care Code Est Pt Level 3 (51044) Complex EM visit Add On G2211 Diagnoses Systemic lupus erythematosus, unspecified SLE type, unspecified organ involvement status M32.9 Systemic lupus erythematosus type: unspecified Systemic lupus erythematosus organ involvement: unspecified Encounter for director long term care use of mycophenolate mofetil Z79.624
== END 2024-10-24 15:28 | disposition home or self-care (01) ==
PROVIDERS: PCP Internal Medicine; Visit Provider Student in an Organized Health Care Education/Training Program
DX: M32.9 Systemic lupus erythematosus, unspecified (principal); Z79.624 Long term (current) use of inhibitors of nucleotide synthesis
CPT/HCPCS: 99213

== ENCOUNTER 2024-11-27 10:12 | Outpatient (REF) | payer MEDICAID, SELFPAY ==
--- OUTSIDE RECORDS SUMMARY | 2024-11-27 09:00 | XMS_ITS | Encounter Summary ---
Author Organization [facility] Address [address] [place] [id number] Care Team Providers Care Call Out Clerk Name Role Phone Kevin Jack CNP Primary Care Provider [phone] [phone] Reason for Referral * Consultation (Routine) - Pending Review Specialty Diagnoses / Procedures Referred By Manjit demarco Referred To Contact Rheumatology Diagnoses Systemic lupus erythematosus, unspecified SLE type, unspecified organ involvement status (CMS/[facility]) Kevin Jack CNP [address] [place] [address] Phone: tel: fax: Referral ID Status Reason Start Date Expiration Date Visits Requested Visits Authorized [id number] Pending Review Specialty Services Required 11/27/2024 11/27/2025 1 1 * Consultation (Routine) - Pending Review Specialty Diagnoses / Procedures Referred By Manjit demarco Referred To Contact Ophthalmology Diagnoses Low tension glaucoma, unspecified glaucoma stage, unspecified laterality Panuveitis of both eyes Kevin Jack CNP [address] [place] [address] Phone: tel: fax: Referral ID Status Reason Start Date Expiration Date Visits Requested Visits Authorized [id number] Pending Review Specialty Services Required 11/27/2024 11/27/2025 1 1 * Consultation (Routine) - Pending Review Specialty Diagnoses / Procedures Referred By Manjit demarco Referred To Contact Gastroenterology Diagnoses Encounter for screening for malignant neoplasm of colon Kevin Jack CNP [address] [place] [address] Phone: tel: fax: Referral ID Status Reason Start Date Expiration Date Visits Requested Visits Authorized [id number] Pending Review Specialty Services Required 11/27/2024 11/27/2025 1 1 * Imaging (Routine) - Authorized Specialty Diagnoses / Procedures Referred By Manjit t Referred To Contact Radiology Diagnoses Encounter for screening mammogram for breast cancer Procedures BI Mammogram Screening Tomosynthesis Bilateral Kevin Jack CNP [address] [place] [address] Phone: tel: fax: [address] Phone: tel: fax: Referral ID Status Reason Start Date Expiration Date V isits Requested Visits Authorized [id number] Authorized 11/27/2024 11/27/2025 1 1 Encounter Details Date Type Department Care Team (Late st Contact Info) Description 11/27/2024 9:00 AM EDT Office Visit [facility] [address] [place] [address] Kevin Jack CNP [address] [place] [address] Low tension glaucoma, unspecified glaucoma stage, unspecified laterality (Primary Dx); Encounter for physical examination; Encounter for screening for malignant neoplasm of colon; Encounter for screening mammogram for breast cancer; Systemic lupus erythematosus, unspecified SLE type, unspecified organ involvement status (CMS/HCC); Panuveitis of right eye Social History Tobacco Use Types Packs/Day Years Used Date Smoking Tobacco: Never Smokeless Tobacco: Never Housing Stability Answer Date Recorded What is your housing situation today? I have julianne quigley 11/21/[address] you li ve. Do you have problems with any of the following? None of the above 11/21/2024 Food Insecurity Answer Date Recorded Within the past 12 months, y ou worried that your food would run out before you got money to buy more: Never True 11/21/2024 Within the past 12 months,th e food you bought just didn't last and you didn't have enough money to get more: Never True Transportation Answer Date Recorded In the past 12 months, has l ack of transportation kept you from medical appts, meetings, work or from getting things needed for daily living? No 11/21/2024 Utilities Answer Date Recorded In the past 12 months, has t he electric, gas, oil or water company threatened to shut off services in your home? No 11/21/2024 Internet Access Answer Date Recorded Internet Access Q1 Yes 11/21/2024 Internet Access Q2 Not on file 11/21/2024 Comments Unknown Sex and Gender Information Value Date Recorded Sex Assigned at Female 01/03/2022 10:37 AM EDT Legal Sex Female 10:37 AM EDT Gender Identity Female 01/03/2022 10:37 AM EDT Sexual Orientation Choose not to disclose 2021 10:37 AM EDT documented as of this encounter Last Filed Vital Signs Vital Sign Reading Time Taken Comments Blood Pressure 124/80 11/27/2024 9:11 AM EDT Pulse 82 11/27/2024 9:11 AM EDT Temperature 36.6 C (97.8 F) 11/27/2024 9:11 AM EDT Respiratory Rate 16 11/27/2024 9:11 AM EDT Oxygen Saturation 100% 11/27/2024 9:11 AM EDT Inhaled Oxygen Concentration - - Weight 57.6 kg (127 lb) 11/27/2024 9:11 AM EDT Height 152.4 cm (5') 11/27/2024 9:11 AM EDT Body Mass Index 24.8 11/27/2024 9:11 AM EDT documented in this encounter Progress Notes * Kevin Jack CNP - 11/27/2024 9:00 AM EDT Subjective: Marga DowlingConstance is a 58 y.o. female with PMH of asthma and hypertension who presents to the office for a new patient visit. Previous PCP unknown. Interim history: Pt seen by [facility]AR[facility]- Lisette Matias- organizational development specialist/Paneuvitis specialist 10/14/2024 pr note Panuveitis of R eye is stable. Pt also has low tension glaucoma. Plan is to intiate treatment and follow up in 01/2025 for iop check. Pt diagnosed with SLE in 2023. Dr Tadeo Sprague Rheumotologist- Had f/u within last month. Pt currently taking Cellcept. Previously taking methotrexate, plaquenil, these were discontinued. Not currently taking any prednisone. Denies recent flare. She did have one at the beginning of the year where she experienced severe rash all over her body, treated with prednisone and topical steroid. No family history of lupus; believes lupus may be related to chemical exposure rather than genetics. Health maintenance - Last colonoscopy was 10 years ago; has been waiting to repeat due to insurance and provider changes. - Mammogram performed annually around birthday in December; last done December 2023; insurance interruptions affected scheduling. - Pap smear performed last year; no abnormal results - Up to date on pneumonia vaccine; flu vaccine typically received in December; never received COVID vaccine and is not interested in COVID vaccine today. 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 Allergies[4] Review of Systems Constitutional: Positive for fatigue. Negative for activity change, appetite change, chills, diaphoresis, fever and unexpected weight change. HENT: Negative. Eyes: Negative for photophobia, pain, discharge, redness and itching. Respiratory: Negative. Cardiovascular: Negative. Gastrointestinal: Negative. Endocrine: Negative. Musculoskeletal: Positive for arthralgias. Negative for back pain, gait problem, joint swelling, myalgias, neck pain and neck stiffness. Skin: Negative for color change and rash. Allergic/Immunologic: Negative. Neurological: Negative. Hematological: Negative. Psychiatric/Behavioral: Negative. Vitals: 11/27/24 0911 BP: 124/80 BP Location: Left arm Patient Position: Sitting BP Cuff Size: Adult Pulse: 82 Resp: 16 Temp: 97.8 ??F (36.6 ??C) TempSrc: Oral SpO2: 100% Weight: 127 lb (57.6 kg) Height: 5' (1.524 m) Physical Exam Constitutional: Appearance: Normal appearance. She is normal weight. HENT: Head: Normocephalic and atraumatic. Eyes: Extraocular Movements: Extraocular movements intact. Pupils: Pupils are equal, round, and reactive to light. Cardiovascular: Rate and Rhythm: Normal rate and regular rhythm. Pulses: Normal pulses. Heart sounds: Normal heart sounds. No murmur heard. No friction rub. No gallop. Pulmonary: Effort: Pulmonary effort is normal. No respiratory distress. Breath sounds: Normal breath sounds. No wheezing or rales. Skin: Coloration: Skin is not pale. Findings: No erythema or rash. Neurological: General: No focal deficit present. Mental Status: She is alert and oriented to person, place, and time. Psychiatric: Mood and Affect: Mood normal. Behavior: Behavior normal. Thought Content: Thought content normal. Judgment: Judgment normal. Assessment & Plan Low tension glaucoma, unspecified glaucoma stage, unspecified laterality Plan: Continue f/u with product development specialist, next f/u in January for IOP check Continue on prescribed eye drops Orders: Referral to Ophthalmology; Future Encounter for physical examination 58 y/o female recently diagnosed with SLE, also suffers from GERD, low tension glaucoma, R eye Panuveitis. Chronic conditions currently stable Plan: 1. Anticipatory guidance discussed. Specific topics reviewed: drugs, ETOH, and tobacco, importance of regular dental care, importance of regular exercise, importance of varied diet, minimize junk food, and sex; STD and prevention as appropriate. 2. Age appropriate screenings discussed and recommended Plan to obtain routine blood work including labs specific to SLE to monitor disease activity. Pt referred to GI for colonoscopy Plans to have mammo next month Declines in office vaccinations today, plans to obtain flu next month at external facility. Orders: Comprehensive Metabolic Panel; Future CBC auto differential; Future TSH W/Reflex to FT4; Future Hemoglobin A1c; Future Lipid Panel, Standard; Future HIV-1/2 Antigen and Antibodies, Fourth Generation, with Reflexes; Future Hepatitis C Antibody with Reflex to HCV, RNA, Quantitative, Real-Time PCR; Future Encounter for screening for malignant neoplasm of colon Orders: Referral to Gastroenterology; Future Encounter for screening mammogram for breast cancer Orders: BI Mammogram Screening Tomosynthesis Bilateral; Future Systemic lupus erythematosus, unspecified SLE type, unspecified organ involvement status (CMS/HCC) Current disease state is stable, she is in care with Dr. Piedra at [facility] Rheum Plan: 1. General Principles Target remission or low disease activity, minimize glucocorticoid exposure, prevent organ damage, and optimize quality of life. 2. Pharmacologic Therapy Continue on immunosuppressive therapy Continue on acei for renal protection 3. Non-Pharmacologic Management Provided patient education including, lifestyle modification, sun protection, cardiovascular risk reduction, osteoporosis prevention, and infection prophylaxis. 4. Monitoring Regular assessment of disease activity, organ function, medication toxicity, and comorbidities. Laboratory monitoring: CBC, renal function, urinalysis, , autoantibodies, and drug-specific safety labs 5. Follow-up 3 months Orders: Urinalysis Complete; Future Antiphospholipid Antibody Panel; Future DNA (ds) Antibody; Future Sed Rate by Modified Westergren; Future C-reactive Protein; Future Referral to Rheumatology; Future Panuveitis of right eye Continue f/u with Panuveitis specialist Orders: Referral to Ophthalmology; Future Current Medications[5] Immunization History Administered Date(s) Administered Influenza Injectable Quadrivalant Preservative Free IIV4 MDCK 11/27/2020, 12/22/2021 Influenza injectable quadrivalent preservative free 01/04/2020, 12/29/2022 Influenza, IIV3, injectable 12/11/2023 Pfizer Covid-19 Vaccine 12+ 06/14/2020, 07/06/2020, 02/07/2021 Pfizer Covid-19 Vaccine 12+ Bivalent 12/22/2021 Pfizer Covid-19 Vaccine 12+ adri-sucrose (Castillo Cap) 06/13/2021 Pneumococcal Conjugate PCV 13 05/18/2020 Tdap 05/18/2020 Zoster, Recombinant 05/18/2020, 08/21/2020 Follow up in about 3 months (around 02/26/2025) for Chronic conditions f/u. [1] There is no problem list on file for this patient. [2] No past surgical history on file. [3] Family History Problem Relation Name Age of Onset Kidney disease Mother Mother Hypertension Mother Mother Arthritis Mother Mother Vision loss Mother Mother Cancer Father Mother Diabetes Father Mother Alcohol abuse Brother Gustavo Hypertension Sister [4] No Known Allergies [5] Current Outpatient Medications Medication Sig Dispense Refill amLODIPine (Norvasc) 5 MG tablet Take 1 tablet by mouth at bed time. betamethasone dipropionate 0.05 % cream APPLY TOPICALLY 2 TIMES A DAY NEEDED FOR SKIN IRRITATION dorzolamide (Trusopt) 2 % ophthalmic solution Administer 1 drop into affected eye(s) 2 times daily. mycophenolate (Cellcept) 500 MG tablet TAKE 1 PILL TWICE A DAY FOR 2 WEEKS THEN 2 PILLS TWICE A DAY Mycophenolate Mofetil 500 MG reconstituted solution omeprazole (PriLOSEC) [address] capsule Take 20 mg by mouth in the morning. timolol (Timoptic) 0.5 % ophthalmic solution Administer 1 drop into affected eye(s) 2 times daily. No current facility-administered medications for this visit. documented in this encounter Plan of Treatment Upcoming Encounters Date Type Department Care Team (Late st Contact Info) Description 02/03/2025 8:00 AM EST Office Visit [facility] [address] [place] [address] [phone] Odalis Mcrae [address] [place], [place] [phone] Scheduled Orders Name Type Priority Associated Diagnoses Orde r Schedule Comprehensive Metabolic Panel Lab Routine Encounter for physical examination Expected: 11/27/2024 (Approximate), Expires: 11/27/2025 CBC auto differential Lab Routine Encounter for physical examination Expected: 11/27/2024 (Approximate), Expires: 11/27/2025 TSH W/Reflex to FT4 Lab Routine Encounter for physical examination Expected: 11/27/2024 (Approximate), Expires: 11/27/2025 Hemoglobin A1c Lab Routine Encounter for physical examination Expected: 11/27/2024 (Approximate), Expires: 11/27/2025 Lipid Panel, Standard Lab Routine Encounter for physical examination Expected: 11/27/2024 (Approximate), Expires: 11/27/2025 HIV-1/2 Antigen and Antibodies, Fourth Generation, with Reflexes Lab Routine Encounter for physical examination Expected: 11/27/2024 (Approximate), Expires: 11/27/2025 Hepatitis C Antibody with Reflex to HCV, RNA, Quantitative, Real-Time PCR Lab Routine Encounter for physical examination Expected: 11/27/2024, Expires: 11/27/2025 BI Mammogram Screening Tomosynthesis Bilateral Imaging Routine Encounter for screening mammogram for breast cancer Expected: 11/27/2024, Expires: 01/27/2026 Urinalysis Complete Lab Routine Systemic lupus erythematosus, unspecified SLE type, unspecified organ involvement status (CMS/HCC) Expected: 11/27/2024, Expires: 11/27/2025 Antiphospholipid Antibody Panel Lab Routine Systemic lupus erythematosus, unspecified SLE type, unspecified organ involvement status (CMS/HCC) Expected: 11/27/2024 (Approximate), Expires: 11/27/2025 DNA (ds) Antibody Lab Routine Systemic lupus erythematosus, unspecified SLE type, unspecified organ involvement status (CMS/HCC) Expected: 11/27/2024 (Approximate), Expires: 11/27/2025 Sed Rate by Modified Westergren Lab Routine Systemic lupus erythematosus, unspecified SLE type, unspecified organ involvement status (CMS/HCC) Expected: 11/27/2024, Expires: 11/27/2025 C-reactive Protein Lab Routine Systemic lupus erythematosus, unspecified SLE type, unspecified organ involvement status (CMS/HCC) Expected: 11/27/2024 (Approximate), Expires: 11/27/2025 Scheduled Referrals Name Type Priority Associated Diagnoses Order Schedule Referral to Gastroenterology Outpatient Referral Routine Encounter for screening for malignant neoplasm of colon Expected: 11/27/2024 (Approximate), Expires: 11/27/2025 Referral to Ophthalmology Outpatient Referral Routine Low tension glaucoma, unspecified glaucoma stage, unspecified laterality Panuveitis of right eye Expected: 11/27/2024 (Approximate), Expires: 11/27/2025 Referral to Rheumatology Outpatient Referral Routine Systemic lupus erythematosus, unspecified SLE type, unspecified organ involvement status (CMS/HCC) Expected: 11/27/2024 (Approximate), Expires: 11/27/2025 documented as of this encounter Visit Diagnoses Diagnosis Low tension glaucoma, unspecified glaucoma stage, unspecified laterality- Primary Encounter for physical examination Encounter for screening for malignant neoplasm of colon Encounter for screening mammogram for breast cancer Systemic lupus erythematosus, unspecified SLE type, unspecified organ involvement status (CMS/HCC) Panuveitis of right eye Panuveitis documented in this encounter Care Teams Call Out Clerk Relationship Specialty Start Date End Date Kevin Jack CNP [address] [place] [id number] PCP - General Family Medicine 11/27/24 documented as of this encounter
--- OUTSIDE RECORDS SUMMARY | 2024-11-27 12:32 | XMS_ITS | Encounter Summary ---
Author Organization [employer] [facility] Address [address] [place] [address] 7 [place] [address] Care Team Providers Care Liability Claims Representative Name Role Phone Guero Rajatjonathan PULIDO Primary Care Provider [phone] [phone] Encounter Details Date Type Department Care Team (Latest Contact Info) Description 10/08/2020 Abstract [facility] CONVERSIONS Dental, Provider, DDS Social History [...] Care Team ( st Contact Info) Description 02/03/2025 8:00 AM EST Office Visit [facility] [address] [place], [place] [phone] Odalis Mcrae [address] [place], [place] [phone] documented as of this encounter Visit Diagnoses Not on filedocumented in this encounter Care Teams Liability Claims Representative Relationship Specialty Start Date End Date Kevin Jack CNP [address] [place] [address] PCP - General Family Medicine 11/27/24 documented as of this encounter
--- OUTSIDE RECORDS SUMMARY | 2024-11-27 12:32 | XMS_ITS | Clinical Summary ---
Author Organization [employer] Address [address] [facility] 7[address] [place] [address] Care Team Providers Care Black Ash Burner Operator Name Role Phone Kevin Jack MINE CAPTAIN Primary Care Provider [phone] [phone] Allergies No known active allergies Medications amLODIPine (Norvasc) 5 MG tablet Take 1 tablet by mouth at bed time. Active omeprazole (PriLOSEC) [address] capsule Take 20 mg by mouth in the morning. 11/10/19 23 Active dorzolamide (Trusopt) 2 % ophthalmic solution Administer 1 drop into affected eye(s) 2 times daily. 12/19/19 24 Active betamethasone dipropionate 0.05 % cream APPLY TOPICALLY 2 TIMES A DAY NEEDED FOR SKIN IRRITATION 07/16/19 25 Active mycophenolate (Cellcept) 500 MG tablet TAKE 1 PILL TWICE A DAY FOR 2 WEEKS THEN 2 PILLS TWICE A DAY Active Mycophenolate Mofetil 500 MG reconstituted solution 07/10/19 25 Active timolol (Timoptic) 0.5 % ophthalmic solution Administer 1 drop into affected eye(s) 2 times daily. 10/15/19 25 Active predniSONE (Deltasone) 10 MG tablet Take 10 mg by mouth Once per day. 01/17/20 24 025 Discontinued folic acid (Folvite) 1 MG tablet Take 1 tablet by mouth in the morning. 08/01/19 24 025 Discontinued methotrexate 2.5 MG tablet TAKE 6 TABS AT ONCE (ONCE A WEEK) 08/24/19 24 025 Discontinued hydroxychloroqui ne (Plaquenil) 200 MG tablet TAKE ONE TABLET BY MOUTH DAILY ON MON-FRI AND TWO TABLETS ON SAT-SUN 07/16/19 25 025 Discontinued Encounters Date Type Department Care Team Description 11/27/2024 9:00 AM EDT Office Visit [facility] [address] [place] [address] Kevin Jack CNP Low tension glaucoma, unspecified glaucoma stage, unspecified laterality (Primary Dx); Encounter for physical examination; Encounter for screening for malignant neoplasm of colon; Encounter for screening mammogram for breast cancer; Systemic lupus erythematosus, unspecified SLE type, unspecified organ involvement status (CMS/HCC); Panuveitis of right eye 11/27/2024 Travel 11/26/2024 Travel 11/21/2024 Patient Outreach [facility] [address] [place] [id number] Portillo Tristan MD Pre-visit Planning (SDOH screening negative and Tobacco screening negative) 11/06/2024 Telephone [facility] [address] [place] [address] Virginia Ornelas MA chart prep 11/06/2024 Population Health Risk Score [facility] () Department [address] [place] [phone] Provider, Population Health Generic 11/01/2024 Telephone [facility] [address] [place] [address] Virginia Ornelas MA chart prep 10/30/2024 Travel 10/18/2024 Telephone [facility] [address] [place] [address] Roger Sanchez BDS 10/14/2024 Travel 10/11/2024 Telephone [facility] [address] [place] [phone] Portillo Tristan MD new pt appt from Last 3 Months Immunizations Immunization Administration Dates Next Due Influenza Injectable Quadriv alant Preservative Free IIV4 MDCK 12/22/2021,11/27/2020 Influenza injectable quadrivalent preservative f ree 12/29/2022,01/04/2020 Influenza, IIV3, injectable 12/11/2023 Pneumococcal Conjugate PCV 13 05/18/2020 Tdap 05/18/2020 Zoster, Recombinant 08/21/2020,05/18/2020 Family History Medical History Relation Name Comments Alcohol abuse Brother Gustavo Cancer Father Mother Diabetes Father Mother Arthritis Mother Mother Hypertension Mother Mother Kidney disease Mother Mother Vision loss Mother Mother Hypertension Sister Relation Name Status Comments Brother Gustavo Father Mother Alive Mother Mother Alive Sister Alive Social History Tobacco Use Types Packs/Day Years Used Date Smoking Tobacco: Never Smokeless Tobacco: Never Tobacco Cessation:Counseling Given: Not Answered Housing Stability Answer Date Recorded What is [...] Mass Index 24.8 11/27/2024 9:11 AM EDT Plan of Treatment Upcoming Encounters Date Type Department Care Team (Late st Contact Info) Description 02/03/2025 8:00 AM EST Office Visit [facility] [address] [place] [address] [phone] Odalis Mcrae [address] [place], [place] [phone] Health Maintenance Due Date Last Done Comments CT Colonography 1963 Colonoscopy 1963 Colorectal Cancer Screening 1963 Dental X-Ray: Full Mouth 1963 Depression Screening 1963 FIT DNA/Cologuard 1963 FIT 1963 FOBT 1963 HIV Screening 1963 Sigmoidoscopy 1963 Alcohol/Substance Use Screening 1975 Hepatitis C Screening 12/29/1981 Pap Smear 12/29/1984 Cervical Cancer Screening 12/29/1993 HPV/Cotest 12/29/1993 Mammogram 2003 Pneumococcal Vaccine: 50+ Years (2 of 2 - PPSV23) 07/13/2020 05/18/2020 RSV Patients and Patients Aged 60 years or older (1 - Risk 60-74 years 1-dose series) 2023 Influenza Vaccine (#1) 2024 , 12/29/2022, 12/22/2021, Additional history exists Dental Oral Exam 01/31/2025 07/30/2024, , 08/02/2023 Dental Prophylaxis 01/31/2025 07/30/2024, 1 03/26/2023, 08/02/2023, Additional history exists Dental X-Ray: Bitewings 07/31/2025 07/31/19 25, 08/02/2023, 06/13/2022 Disability Screening 10/30/2025 10/30/2024 SDOH Screening 11/21/2025 11/21/2024 COVID-19 Vaccine ( season) 2025 12/22/2021, 06/13/2021, 02/07/2021, Additional history exists Postponed from 11/04/2024 (Patient Refused) Tobacco Screening 11/27/2025 11/27/2024 DTaP/Tdap/Td Vaccines (2 - Td or Tdap) 05/18/2030 05/18/2020 Zoster Vaccines Completed 08/21/2020, 05/18/2020 HIB Vaccines Aged Out No longer eligi [...] patient's age to complete this topic Meningococcal B Vaccine Aged Out No l onger eligible based on patient's age to complete [...] Associated Diagnosis Comments PROPHYLAXIS - ADULT Routine 07/30/2024 8 :00 AM EDT BITEWINGS - 4 RADIOGRAPHIC IMAGES Routine 07/30/2024 8:00 AM EDT PERIODIC ORAL EVALUATION - ESTABLISHED PATIENT Routine 07/30/2024 8:00 AM EDT from Last 3 Months or Most Recently Relevant to Health Maintenance Insurance [facility] Care Teams Black Ash Burner Operator Relationship Specialty Start Date End Date Kevin Jack CNP [address] [place] [id number] PCP - General Family Medicine 11/27/24
--- OUTSIDE RECORDS SUMMARY | 2024-11-27 12:32 | XMS_ITS | Clinical Summary ---
Author Organization [facility] Address [address] [place] [phone] Phone Care Team Providers Care Director Medicare Sales Name Role Phone Kevin Jack ASHOK Primary Care Provider [phone] Allergies No known active allergies Medications omeprazole (PRILOSEC) 20 MG capsule Take by mouth daily. Active amLODIPine (NORVASC) 5 MG tablet Take 1 tablet by mouth daily. 3 Active mycophenolate mofetil (CELLCEPT) 500 mg tablet TAKE 1 PILL TWICE A DAY FOR 2 WEEKS THEN 2 PILLS TWICE A DAY 5 Active betamethasone dipropionate 0.05 % cream APPLY TOPICALLY 2 TIMES A DAY NEEDED FOR SKIN IRRITATION 5 Active dorzolamide (TRUSOPT) 2 % ophthalmic solution Place 1 drop into each eye 2 (two) times a day. 1 drop, Each eye, BID 10 mL 12 5 Active timolol (TIMOPTIC) 0.5 % ophthalmic solution Place 1 drop into each eye 2 (two) times a day. 10 mL 3 5 Active Active Problems No known active problems Encounters Date Type Department Care Team Description 10/14/2024 10:30 AM EDT Office Visit [facility] in [address] [address] Lisette Matias MD Low-tension glaucoma of both eyes, moderate stage (Primary Dx) 09/17/2024 10:15 AM EDT Office Visit [facility] in [address] [address] Elis Hand MD Retinal edema of right [...] PM EST Office Visit [facility] in [address] [address] Lisette Matias MD [address] [place] [address], [address] [place] [address] 03/18/2025 10:15 AM EST Office Visit [facility] in [address] [address] Elis Hand MD [address] [place] [address], [address] [place] [phone] [email or web address]. OM 03/18/2025 10:30 AM EST Procedure visit [facility] in [address] [address] Health Maintenance Due Date Last Done Comments LIPID PANEL 1965 DEPRESSION SCREENING 1975 HIV ONE-TIME SCREENING (18-65 YEARS) 12/29/1981 MAMMOGRAM 2003 COLOGUARD 12/29/2008 COLONOSCOPY 12/29/2008 COLORECTAL CANCER SCREENING 12/29/2008 FIT TEST 12/29/2008 FOBT 12/29/2008 SIGMOIDOSCOPY 12/29/2008 VIRTUAL COLONOSCOPY 12/29/2008 PNEUMOCOCCAL VACCINES (50+ years) (2 of 2 - PPSV23) 07/13/2020 05/18/2020 RSV VACCINE (1 - Risk 60-74 years 1-dose series) 2023 INFLUENZA VACCINE (#1) 2024 , 12/29/2022, 12/22/2021, Additional history exists COVID-19 VACCINE ( - season) 2024 12/22/2021, 06/13/2021, 02/07/2021, Additional history exists SCREENING FOR DIABETES 10/04/2026 10/05/2023 PAP SMEAR [...] layer: Borderline. General Details Testing performed by: [facility]. [facility]ez Notes GOOD FIXATION & COOPERATION us Lisette Matias MD OPHTHALMOLOGY IMAGING Final Resu lt UNIQUE * Reyes Visual Field - OU - Both Eyes (10/14/2024 11:10 AM EDT) Other Narrative UNIQUE - 10/14/2024 12:05 PM EDT Right Eye [...] Res ult - Final Performing Organization Address [facility] de Phone Number UNIQUE * OCT, RETINA - OU - BOTH EYES - Cirrus; Retina; HD 5-Line Macula CHRISTY, HD Radial Macula CHRISTY (09/17/2024 10:49 AM EDT) Other Narrative UNIQUE - 09/17/2024 10:54 AM EDT Right Eye Quality was good. Findings include abnormal foveal contour, epiretinal membrane, retinal pigment epithelium changes . Disease has: been stable. Left Eye Quality was good. Findings include normal foveal contour. Disease has: been stable. General Details Testing performed by: HL. Notes GOOD FIXATION [facility] COOPERATION us Elis Hand MD OPHTHALMOLOGY IMAGING Final Res ult Performing Organization Address [facility] de Phone Number UNIQUE * Pap Test (01/29/2024 12:00 AM EST) 01/29/2024 01/30/2024 9:4 7 AM EST Narrative SEE NARRATIVE - 02/05/2024 2:55 PM EST [address] [address] Stock Lifter: Noam Buckley MD FISHING TOOL OPERATOR Cytology Report FINAL DIAGNOSIS A. PAP SMEAR (THIN PREP) CE: SPECIMEN ADEQUACY: Satisfactory for evaluation; transformation zone present. Evaluation limited by scant cellularity. INTERPRETATION: NEGATIVE FOR INTRAEPITHELIAL LESION OR MALIGNANCY. Atrophy. This specimen was analyzed by the automated ThinPrep Imaging System ([employer] and the selected klein were reviewed by a literacy consultant. Electronically Signed Out By: DONI Leonardo(ASCP) The [...] by real-time polymerase chain reaction (PCR) at [facility], [address] [place] [address] using the FDA-approved [employer] Onclarity9 HPV Assay with extended genotyping. Uses of the assay in scenarios other than those approved by the FDA should be considered off-label use. The accuracy and precision of this test for all other off-label specimen sources has been verified in the Cytopathology Laboratory of the [facility] and has not been cleared or [...] : 1965 (Age: 58) Sex: F Institution: [facility] Location: [facility] Date of Collection: 01/29/2024 Date of Reported: 02/05/2024 14:55 Results to: Dulce Mcclelland MD us Dulce Mcclelland MD CYTOLOGY ORDERABLES Final Resu lt SEE NARRATIVE * Hepatitis C antibody, qualitative (10/05/2023 12:13 PM EDT) HCV ANTIBODY Negative Negative [facility] Comment:Antibodies to HCV no t detected. Does not exclude the possibility of exposure to HCV. Blood 10/05/2023 12:1 3 PM EDT 10/05/2023 12:17 PM EDT us Elis Hand MD LAB BLOOD ORDERABLES Final Resu lt [facility] [address] [place] [address] from Last 3 Months or Most Recently Relevant to Health Maintenance Insurance [facility] NON NSPG PCP [employer] CONNE[employer]CARE [facility] NON NSPG PCP SILVER [employer] CONNECTORCARE [employer] NON NSPG PCP S[employer] CONNE[employer]CARE [employer] NON NSPG PCP S[employer] CONNE[employer]ARE [employer] NON NSPG PCP [employer] [facility] NON NSPG PCP S[employer] CONNE[employer] [facility] NON NSPG PCP [employer] CONNECTORCARE [address] [employer] Care Teams Director Medicare Sales Relationship Specialty Start Date End Date Kevin Jack CNP [address] [place] [address] PCP - General Nurse Practitioner 11/01/24 Additional Source Comments The information contained in this document represents components of the legal health record. It is not the complete legal health record.[facility]
--- OUTSIDE RECORDS SUMMARY | 2024-11-27 12:33 | XMS_ITS | Encounter Summary ---
Author Organization [employer] Address [address] [place] [address] Care Team Providers Care Tool Polishing Machine Operator Name Role Phone Kevin Jack ASHOK Primary Care Provider [phone] Encounter Details Date Type Department Care Team (Latest Contact Info) Description 11/27/2024 Travel Social History Tobacco Use Types Packs/Day Years [...] t he electric, gas, oil or water [employer] threatened to shut off services in your [...] Description 02/03/2025 8:00 AM EST Office Visit [facility] [address], [place] [phone] Odalis Mcrae [address] [place], [place] [phone] documented as of this encounter Visit Diagnoses Not on filedocumented in this encounter Care Teams Tool Polishing Machine Operator Relationship Specialty Start Date End Date Kevin Jack CNP [address] [place] [phone] PCP - General Family Medicine 11/27/24 documented as of this encounter
--- OUTSIDE RECORDS SUMMARY | 2024-11-27 12:33 | XMS_ITS | Encounter Summary ---
Author Organization [employer] Address [address] [facility] [place] [address] Care Team Providers Care Die Sinker Apprentice Name Role Phone Unavailable Primary Care Provider Unavailabl e Encounter Details Date Type Department Care Team (Latest Contact Info) Description 11/26/2024 Travel Social History Tobacco Use Types Packs/Day Years Used Date Smoking Tobacco: Never Smokeless Tobacco: Never Housing Stability Answer Date Recorded What is your housing situation today? I have juliannechuckie quigley 11/21/[address] you [...] Description 02/03/2025 8:00 AM EST Office Visit [facility] [address] [place] [address] [phone] Odalis Mcrae [address] [place] [phone] documented as of this encounter Visit Diagnoses Not on filedocumented in this encounter
[2024-11-27 14:33] LABS: MANUAL DIFF FLAG NO
[2024-11-27 14:41] LABS: Hematocrit 36.1 % (37.0-47.0); Hemoglobin 11.7 g/dl (12.0-16.0); Imm Gran Abs Auto 0.01 X10*3/uL (0.00-0.03); Imm Gran Pct Auto 0.2 % (0.0-0.4); Lymphocytes Absolute Auto 1.5 X10*3/uL (1.2-4.9); Mean Corpuscular HGB Conc 32.4 g/dl (31.0-35.0); Mean Corpuscular Hemoglobin 27.0 pg (27.0-33.0); Mean Corpuscular Volume 83.4 fL (80.0-98.0); NRBC Abs Auto 0.000 X10*3/uL (0.0-0.012); NRBC Pct Auto 0.0 /100WBC (0.0-0.2); Platelet Count 359 X10*3/uL (160-400); Red Blood Count 4.33 X10*6/uL (4.20-5.50); White Blood Count 4.4 X10*3/uL (4.8-10.8)
[2024-11-27 14:45] LABS: Appearance Urine Clear; Glucose Urine UA Negative (Negative); PH 7.0 (5.0-9.0); Specific Gravity - Urine 1.010 (1.005-1.025)
[2024-11-27 14:52] LABS: Hemoglobin A1C 142.3361 umol/L
[2024-11-27 15:30] LABS: Alanine Aminotransferase 20 U/L (0-31); Albumin Level 4.4 g/dL (3.5-5.0); Alkaline Phosphatase 82 U/L (39-117); Anion Gap 9 (12-20); Aspartate Amino Transferase 30 U/L (5-31); Blood Urea Nitrogen 13 mg/dL (9-16); Calcium 9.4 mg/dL (8.4-10.2); Carbon Dioxide 28 mmol/L (22-29); Chloride 108 mmol/L (96-108); Cholesterol 193 mg/dL (<200); Estimated Glomerular Filt Rate > 60; HDL Cholesterol 41 mg/dL (>40); Potassium 4.0 mmol/L (3.3-5.1); Sodium 141 mmol/L (135-145); Total Protein 7.2 g/dL (6.5-8.0); Triglycerides 163 mg/dL (<150)
[2024-11-28 04:43] LABS: HIV Num 1 0.04 S/CO (0.00-0.99); ~HepC Num1 0.04 S/CO (0.00-0.79); ~Hepatitis C Antibody Nonreactive (Nonreactive)
[2024-12-01 22:24] LABS: Beta-2 Glycoprotein I Ab IgG <2.0 U/mL (<20.0); Beta-2 Glycoprotein I Ab IgM <2.0 U/mL (<20.0); Beta-2 Glycoprotein I Ab, IgA <2.0 U/mL (<20.0); Phosphatidylserine PT IgM 19 U (<=30)
== END 2024-11-27 10:13 | disposition home or self-care (01) ==
LOC: HO.CHCLDS 10:12
DX: Z00.00 Encounter for general adult medical examination without abnormal findings (principal); M32.9 Systemic lupus erythematosus, unspecified; Z11.4 Encounter for screening for human immunodeficiency virus [HIV]; Z11.59 Encounter for screening for other viral diseases
CPT/HCPCS: 36415; 80053; 80061; 81001; 83036; 83516; 84443; 85025; 85652; 86140; 86146; 86147; 86225; 86803; 87389

== ENCOUNTER 2024-12-11 10:09 | Outpatient (REF) | payer MEDICAID, SELFPAY ==
[2024-12-11 15:06] LABS: Ferritin 128 ng/mL (10-250); Iron 91 mcg/dL (30-160); Percent Iron Saturation 35 % (15-50); Total Iron Binding Capacity 260 mcg/dL (228-428); Unsaturated Iron Binding 169 ug/dL
== END 2024-12-11 10:10 | disposition home or self-care (01) ==
LOC: HO.CHCLDS 10:09
DX: D50.9 Iron deficiency anemia, unspecified (principal)
CPT/HCPCS: 36415; 82728; 83540

== ENCOUNTER 2025-02-10 11:58 | Outpatient (REF) | payer MEDICAID, SELFPAY | END 2025-02-10 11:59 | disposition home or self-care (01) | LOC: HO.MAMMO 11:58 | DX: Z12.31 Encounter for screening mammogram for malignant neoplasm of breast (principal) | CPT/HCPCS: 77063; 77067 ==

== ENCOUNTER → 2025-02-10 12:15 | Outpatient (BNV) | payer MEDICAID, SELFPAY | PROVIDERS: Visit Provider Internal Medicine | DX: Z12.31 Encounter for screening mammogram for malignant neoplasm of breast (principal) | CPT/HCPCS: 77063; 77067 ==